=== PATIENT | female | born 1955 | race Caucasian/White ===

== ENCOUNTER → 2017-01-08 | Outpatient (CLI) | payer OTHER ==
[~2017-01-08] MED LIST: ASCO10003 PO; ASPEC81 PO; CALC600T9 PO; FAMO20TA11 PO; LISI-729 PO; LPT10 PO; METO25TA3 PO; MULTTAB58 PO
[2017-01-08 18:34] LABS: ALT/SGPT 38 U/L (12-78); AST/SGOT 22 U/L (15-37); BLOOD UREA NITROGEN 30 mg/dl (7-18); BUN/CREATININE RATIO 18.9 (10-20); CARBON DIOXIDE 21 mmol/L (21-32); CHLORIDE 112 mmol/L (98-107); CHOLESTEROL 135 mg/dl (0-200); GLUCOSE 79 mg/dl (70-99); MAGNESIUM 2.3 mg/dl (1.8-2.4); POTASSIUM 4.7 mmol/L (3.5-5.1); SODIUM 144 mmol/L (136-145); TRIGLYCERIDES 58 mg/dl (0-150); VERY LOW DENSITY LIPOPROT CALC 12 mg/dl
[2017-01-08 18:44] LABS: ALB/GLOB RATIO 1.2 (0.9-2); ALKALINE PHOSPHATASE 72 U/L (45-117); HDL CHOLESTEROL 69 mg/dl; LDL CHOLESTEROL CALCULATED 54 mg/dl
[2017-01-08 19:06] LABS: CALCIUM 9.5 mg/dl (8.5-10.1)
== END | disposition home or self-care (01) ==
LOC: C.LABPVFM 13:49
PROVIDERS: ATTEND Nurse Practitioner
DX: R25.2 Cramp and spasm (principal); E78.5 Hyperlipidemia, unspecified

== ENCOUNTER → 2017-01-15 | Outpatient (CLI) | payer OTHER ==
--- NOTE | 2017-01-15 11:21 | DIAGNOSTIC IMAGING REPORT ---
RENAL ULTRASOUND HISTORY: N28.9 Renal insufficiency, [id number] COMPARISON: None. FINDINGS: Right kidney: Maximum dimension 11.7 cm. No evidence for hydronephrosis. Normal corticomedullary differentiation and cortical thickness. Left kidney: Maximum dimension 10.5 cm. No evidence for hydronephrosis. Normal corticomedullary differentiation and cortical thickness. Bladder: No bladder wall thickening. The bilateral ureteral jets were identified. IMPRESSION: Normal renal ultrasound. Electronically signed by: Delroy Vale M.D. 01/15/2017 11:20 AM Dictated Date/Time: 01/15/2017 11:20 AM
== END | disposition home or self-care (01) ==
LOC: C.ULTR 10:25
PROVIDERS: ATTEND Nurse Practitioner
DX: N28.9 Disorder of kidney and ureter, unspecified (principal)

== ENCOUNTER → 2017-02-19 | Outpatient (CLI) | payer OTHER ==
--- NOTE | 2017-02-19 12:21 | DIAGNOSTIC IMAGING REPORT ---
LEFT FOOT MIN 3 VIEWS ROUTINE CLINICAL HISTORY: LEFT ANKLE PAIN, LEFT FOOT PAIN pain COMPARISON: None. DISCUSSION: Heel spur. Degenerative change of the tarsal metatarsal complex. No evidence for fracture or dislocation/subluxation. Mild degenerative change of the interphalangeal joints throughout. There is no evidence for soft tissue swelling. IMPRESSION: Moderate degenerative change. Heel spur. No acute bony abnormality. The above report was generated using voice recognition software. It may contain grammatical, syntax or spelling errors. Electronically signed by: Delroy Vale M.D. 02/19/2017 12:20 PM Dictated Date/Time: 02/19/2017 12:19 PM
== END | disposition home or self-care (01) ==
LOC: C.RADPV 12:06
PROVIDERS: ATTEND Neuromusculoskeletal Medicine & OMM
DX: M25.572 Pain in left ankle and joints of left foot (principal); M79.672 Pain in left foot; M77.32 Calcaneal spur, left foot

== ENCOUNTER → 2017-04-03 | Outpatient (CLI) | payer OTHER ==
[2017-04-03 17:56] LABS: URINE APPEARANCE CLOUDY (CLEAR); URINE BILIRUBIN NEG (NEG); URINE COLOR DK YELLOW; URINE EPITHELIAL CELL AUTO >30 /lpf (0-5); URINE NITRITE NEG (NEG); UROBILINOGEN NEG (NEG); ZZUR CULT IF INDIC CLEAN CATCH YES
[2017-04-03 18:00] LABS: BLOOD UREA NITROGEN 24 mg/dl (7-18); BUN/CREATININE RATIO 18.5 (10-20); CALCIUM 9.1 mg/dl (8.5-10.1); CARBON DIOXIDE 24 mmol/L (21-32); CHLORIDE 109 mmol/L (98-107); GLUCOSE 91 mg/dl (70-99); MAGNESIUM 1.9 mg/dl (1.8-2.4); POTASSIUM 4.2 mmol/L (3.5-5.1); SODIUM 140 mmol/L (136-145)
[2017-04-03 18:01] LABS: PHOSPHORUS 3.9 mg/dl (2.5-4.9)
[2017-04-03 18:06] LABS: MANUAL MICROSCOPIC REQUIRED? NO; REVIEW REQ? YES
== END | disposition home or self-care (01) ==
LOC: C.LABPVFM 14:01
PROVIDERS: ATTEND Internal Medicine Nephrology
DX: N28.9 Disorder of kidney and ureter, unspecified (principal)

== ENCOUNTER → 2017-07-08 | Outpatient (CLI) | payer OTHER | END | disposition home or self-care (01) | LOC: C.LABPVFM 14:44 | PROVIDERS: ATTEND Nurse Practitioner | DX: L65.9 Nonscarring hair loss, unspecified (principal); R00.0 Tachycardia, unspecified ==

== ENCOUNTER → 2017-09-11 | Outpatient (CLI) | payer OTHER ==
[2017-09-11 18:11] LABS: ALBUMIN 3.8 gm/dl (3.4-5.0); BLOOD UREA NITROGEN 25 mg/dl (7-18); CALCIUM 9.3 mg/dl (8.5-10.1); CARBON DIOXIDE 26 mmol/L (21-32); CREATININE 1.17 mg/dl (0.60-1.20); GLUCOSE 76 mg/dl (70-99); POTASSIUM 4.7 mmol/L (3.5-5.1); SODIUM 140 mmol/L (136-145)
== END ==
LOC: C.LABPVFM 14:40
PROVIDERS: ATTEND Internal Medicine Nephrology
DX: Z87.448 Personal history of other diseases of urinary system (principal)

== ENCOUNTER → 2018-03-04 | Outpatient (CLI) | payer OTHER ==
[~2018-03-04] MED LIST changes: -ASPEC81 PO; +ASPI-320 PO
--- NOTE | 2018-03-05 13:39 | MAMMOGRAPHY REPORT ---
BILATERAL DIGITAL SCREENING MAMMOGRAM TOMOSYNTHESIS WITH CAD: 03/04/2018 CLINICAL HISTORY: Routine screening. Patient has no complaints. TECHNIQUE: The study was acquired using full field digital technology and interpreted from soft copy. Breast tomosynthesis in addition to standard 2D mammography was performed. Current study was also ev aluated with a Computer Aided Detection (CAD) system. COMPARISON: Comparison is made to exams dated: 02/10/2016 mammogram and 07/01/2014 mammogram - [facility]. BREAST COMPOSITION: The tissue of both breasts is heterogeneously dense, which may obscure small mass es. FINDINGS: There are benign calcifications in both breasts. The parenchymal pattern is unchanged. No developin g mass, architectural distortion or cluster of suspicious microcalcifications is seen in either breas t. IMPRESSION: ACR BI-RADS CATEGORY 2: BENIGN There is no mammographic evidence of malignancy. A 1 year screening mammogram is recommended.( 019) The patient will receive written notification of the results. Some breast cancers are not detected with mammography. A negative mammographic report should not laurie y biopsy if a clinically suggestive mass is present. Bessy Do M.D. ay/:03/04/2018 17:39:57 Fence Installer: RT Veto(Jolene)(M), [facility] letter sent: Normal 1/2 BI-RADS Code: ACR BI-RADS Category 2: Benign
== END | disposition home or self-care (01) ==
LOC: C.MAMM 14:24
PROVIDERS: ATTEND Nurse Practitioner
DX: Z12.31 Encounter for screening mammogram for malignant neoplasm of breast (principal)

== ENCOUNTER 2019-06-09 10:28 | Inpatient (IN) ==
[2019-06-09] MEDS ORDERED: dilTIAZem HCl 5 MG/ML 5 ML VIAL IV STA (11:11)
[2019-06-09 11:15] LABS: Basophils # (auto) 0.03 K/uL (0-0.2); Basophils % (auto) 0.4 %; Eosinophils # (auto) 0.06 K/uL (0-0.5); Eosinophils % (auto) 0.8 %; Hematocrit (blood only) 37.4 % (37-47); Hemoglobin 12.1 g/dL (12.0-16.0); Immature Granulocytes # (auto) 0.01 K/uL (0.00-0.02); Immature Granulocytes % (auto) 0.1 %; Lymphocytes # (auto) 1.56 K/uL (1.2-3.4); Lymphocytes % (auto) 20.9 %; Mean Corpuscular Hemoglobin 29.7 pg (25-34); Mean Corpuscular Hgb Conc 32.4 g/dL (32-36); Mean Corpuscular Volume 91.7 fL (80-100); Mean Platelet Volume 10.4 fL (7.4-10.4); Monocytes # (auto) 0.47 K/uL (0.11-0.59); Monocytes % (auto) 6.3 %; Neutrophils # (auto) 5.35 K/uL (1.4-6.5); Neutrophils % (auto) 71.5 %; Platelet Count 220 K/uL (130-400); RDW Coefficient of Variation 15.5 % (11.5-14.5); RDW Standard Deviation 52.1 fL (36.4-46.3); Red Blood Count 4.08 M/uL (4.2-5.4); White Blood Count 7.48 K/uL (4.8-10.8)
--- NOTE | 2019-06-09 11:20 | XRay Report ---
XR chest 1V portable HISTORY: Atypical Chest Pain COMPARISON: Chest 12/15/2014. FINDINGS: The cardiac silhouette is mildly enlarged. This is progressed in the interval. Diffuse inte rstitial vascular thickening has also new from the prior study. This is consistent with mild intersti tial pulmonary edema. Small bilateral pleural effusions have also developed in the interval. Hazy celia earance of the right lung base. IMPRESSION: 1. Interval development of mild interstitial pulmonary edema and small bilateral pleural effusions. 2. Hazy appearance to the right lung base. This is nonspecific but could be due to atelectasis from t he pleural fusion or a developing pneumonia. Electronically signed by: Michael Rees M.D. 06/09/2019 11:19 AM
[2019-06-09 11:22] LABS: Alanine Aminotransferase 173 U/L (12-78); Albumin Level 3.5 gm/dl (3.4-5.0); Aspartate Aminotransferase 49 U/L (15-37); BUN Creatinine Ratio 23.1 (10-20); Blood Urea Nitrogen 30 mg/dl (7-18); Calcium 9.2 mg/dl (8.5-10.1); Carbon Dioxide 22 mmol/L (21-32); Chloride 109 mmol/L (98-107); Creatinine Clr Calc Pharmacy 62.2 ml/min; Est GFR (African American) 50.2; Est GFR (Non-African American) 43.3; Glucose 117 mg/dl (70-99); Lipase 121 U/L (73-393); Potassium 4.1 mmol/L (3.5-5.1); Sodium 140 mmol/L (136-145)
[2019-06-09 11:26] LABS: INR 1.2 (0.9-1.1); Partial Thromboplastin Ratio 0.9; Partial Thromboplastin Time 23.5 Seconds (21.0-31.0); Prothrombin Time 11.8 Seconds (9.0-12.0)
[2019-06-09 11:27] LABS: Alkaline Phosphatase 153 U/L (45-117); Bilirubin,Total 0.9 mg/dl (0.2-1); Globulin 3.5 gm/dl (2.5-4.0); Troponin I < 0.015 ng/ml (0-0.045)
[2019-06-09] MEDS: dilTIAZem HCl 125 MG in DEXTROSE 5% 100 ML IV SCH ×3 (11:47→23:26)
--- NOTE | 2019-06-09 11:50 | Emergency Department Note ---
General (ED) Blank Date of Service June 09, 2019 ED Visit Note I attest that I saw and examined this patient, participating in their care under the direction of Dr. Daniel. Please see his note for clinical assessment and course. Resident Activity Tracking Resident Involvement: Resident Care Provided Care Provided: Adult ED
[2019-06-09 11:51] LABS: Appearance Urine Cloudy (Clear); Bacteria Urine Automated Negative (Negative); Bilirubin Urine Negative (Negative); Blood Urine Negative (Negative); Color Urine Dark Yellow; Epithelial Cell Urine Auto >30 /lpf (0-5); Glucose Urine UA Negative (Negative); Ketones Urine Trace (Negative); Leukocyte Esterase Urine Negative (Negative); Nitrite Urine Negative (Negative); Protein Urine 2+ (Negative); RBC Urine Automated 0-4 /hpf (0-4); Specific Gravity Urine 1.032 (1.000-1.030); Urobilinogen Urine Negative (Negative)
--- NOTE | 2019-06-09 13:43 | Emergency Department Note ---
Entered by Susan Navarro acting as a scribe for Coleman Daniel DO History of Present Illness General Chief complaint: Edema To Extremity Time Seen by Provider: 06/09/19 11:02 Source: patient History of Present Illness Provider complaint: shortness of breath Onset (ago): week(s) 1 Location: chest Pain Consistency: + intermittent Maximum Pain Intensity: 2 Relieved By: + rest Exacerbated By: + movement Associated symptoms: + other (lower extermity swelling ) The patient is a 64 y/o female who presents to the emergency department for evaluation of intermittent shortness of breath worse with excretion that began 1 week ago The patient states that she has had one week of lower extremity swelling with associated shortness of breath. 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 The patient states she went to her PCP this morning and was referred to the ED for a-fib with RVR. The patient denies any other symptoms. Home Medications Home Medications Medication Instructions Recorded Confirmed Type acetaminophen 500 mg tablet 500 mg PO .COMPLEX tab 02/12/19 06/09/19 History ascorbic acid (vitamin C) 1,000 mg 1 gm PO DAILY tab 02/12/19 06/09/19 History tablet atorvastatin 20 mg tablet 20 mg PO QPM tab 02/12/19 06/09/19 History cholecalciferol (vitamin D3) 25 1,000 units PO DAILY 02/12/19 06/09/19 History mcg (1,000 unit) tablet famotidine 20 mg tablet 20 mg PO DAILY #90 tab 02/12/19 06/09/19 History metoprolol succinate 25 mg 25 mg PO DAILY #90 tab 02/23/19 06/09/19 Rx tablet,extended release 24 hr omeprazole 20 mg capsule,delayed 20 mg PO DAILY #90 cap 03/23/19 06/09/19 Rx release amoxicillin 875 mg-potassium 1 tab PO BID #20 tab 06/03/19 06/09/19 Rx clavulanate 125 mg tablet promethazine 6.25 mg-codeine 10 5 ml PO Q6H PRN #118 ml 06/03/19 06/09/19 Rx mg/5 mL syrup multivitamin 1 tab PO DAILY 06/09/19 06/09/19 History oxycodone 5 mg PO UD PRN 06/09/19 06/09/19 History Allergies Allergy/AdvReac Type Severity Reaction Status Date / Time meloxicam Allergy Intermediate RASH Verified 06/09/19 11:29 Past Med/Surg History Medical History Atherosclerotic heart disease of [place] coronary artery without angina pectoris (Acute) Chest pain (Acute) Chronic venous insufficiency (Acute) Crystalluria (Acute) Diverticulitis (Acute) Diverticulosis of colon (Acute) Dyslipidemia (Chronic) Elevated blood sugar level (Resolved) GERD without esophagitis (Chronic) High risk medication use (Acute) History of acute renal failure (Resolved) Orthostatic hypotension (Acute) PSVT (paroxysmal supraventricular tachycardia) (Acute) Vaginal prolapse (Acute) Surgical History S/P total knee arthroplasty (Resolved) Social History Preferred Language: Zambian Communication Ability: Effective Grades 1 Thru 6 Visiting Teacher Required: No Beliefs That Will Affect Care: None marital status: Current Living Situation: Spouse current occupational status: employed Other Information That Helps Us Care for You: No Feels Safe at Home: Yes Safety Concerns: Feels Safe At This Time Smoking Status: Never smoker Hx Alcohol Use: No Hx Substance Use: No caffeine: Yes Dental Care, Regularly: No Physical Activity Frequency: Does not Exercise Seatbelt Use: always Sunscreen Use: Yes Review of Systems See HPI for pertinent positives & negatives. and A total of 10 systems reviewed and were otherwise negative Physical Exam Vital Signs Vital Signs - 24 hr 06/09/19 10:35 06/09/19 10:58 06/09/19 11:00 Temperature 36.5 C Temperature Source Oral Pulse Rate 156 H 150 H 138 H Pulse Rate [Left] 152 H Pulse Rate from SpO2 Sensor 98 H 129 H Respiratory Rate 24 28 H 24 Respiratory Effort / Characteristics Spontaneous Non-Labored Respiratory Depth Normal Respiratory Pattern Regular Blood Pressure 143/94 H 154/75 H 136/114 H Blood Pressure [Left Arm] 154/75 H Blood Pressure Mean 110 92 118 Blood Pressure Mean [Left Arm] 101 Pulse Oximetry 95 94 Oxygen Delivery Method Room Air Room Air Sepsis Recent Fever Within 48 Hours No Sepsis New/Unexplained Change in Mental Status No Sepsis Action Taken by Nursing No Action Required 06/09/19 11:01 06/09/19 11:11 06/09/19 11:15 Temperature Temperature Source Pulse Rate 142 H 145 H Pulse Rate [Left] Pulse Rate from SpO2 Sensor 102 H 113 H Respiratory Rate 23 23 Respiratory Effort / Characteristics Respiratory Depth Respiratory Pattern Blood Pressure Blood Pressure [Left Arm] Blood Pressure Mean Blood Pressure Mean [Left Arm] Pulse Oximetry 96 96 94 Oxygen Delivery Method Room Air Sepsis Recent Fever Within 48 Hours Sepsis New/Unexplained Change in Mental Status Sepsis Action Taken by Nursing 06/09/19 11:37 06/09/19 11:39 06/09/19 11:40 Temperature Temperature Source Pulse Rate 163 H 150 H 147 H Pulse Rate [Left] Pulse Rate from SpO2 Sensor 126 H 122 H Respiratory Rate 26 H 23 26 H Respiratory Effort / Characteristics Respiratory Depth Respiratory Pattern Blood Pressure 118/88 Blood Pressure [Left Arm] Blood Pressure Mean 92 Blood Pressure Mean [Left Arm] Pulse Oximetry 94 94 Oxygen Delivery Method Sepsis Recent Fever Within 48 Hours Sepsis New/Unexplained Change in Mental Status Sepsis Action Taken by Nursing 06/09/19 11:45 06/09/19 11:46 06/09/19 11:49 Temperature Temperature Source Pulse Rate 143 H 143 H 123 H Pulse Rate [Left] Pulse Rate from SpO2 Sensor 110 H 98 H 100 H Respiratory Rate 23 18 25 H Respiratory Effort / Characteristics Respiratory Depth Respiratory Pattern Blood Pressure 137/101 H 127/98 Blood Pressure [Left Arm] Blood Pressure Mean 107 110 Blood Pressure Mean [Left Arm] Pulse Oximetry 93 94 92 Oxygen Delivery Method Sepsis Recent Fever Within 48 Hours Sepsis New/Unexplained Change in Mental Status Sepsis Action Taken by Nursing 06/09/19 12:00 06/09/19 12:01 06/09/19 12:15 Temperature Temperature Source Pulse Rate 111 H 111 H 114 H Pulse Rate [Left] Pulse Rate from SpO2 Sensor 113 H 98 H 96 H Respiratory Rate 25 H 21 18 Respiratory Effort / Characteristics Respiratory Depth Respiratory Pattern Blood Pressure 123/80 125/85 Blood Pressure [Left Arm] Blood Pressure Mean 100 98 Blood Pressure Mean [Left Arm] Pulse Oximetry 91 92 Oxygen Delivery Method Sepsis Recent Fever Within 48 Hours Sepsis New/Unexplained Change in Mental Status Sepsis Action Taken by Nursing 06/09/19 12:16 06/09/19 12:30 06/09/19 12:31 Temperature Temperature Source Pulse Rate 115 H 123 H 112 H Pulse Rate [Left] Pulse Rate from SpO2 Sensor 89 105 H 99 H Respiratory Rate 22 24 24 Respiratory Effort / Characteristics Respiratory Depth Respiratory Pattern Blood Pressure 125/87 Blood Pressure [Left Arm] Blood Pressure Mean 92 Blood Pressure Mean [Left Arm] Pulse Oximetry 95 94 95 Oxygen Delivery Method Sepsis Recent Fever Within 48 Hours Sepsis New/Unexplained Change in Mental Status Sepsis Action Taken by Nursing 06/09/19 12:45 06/09/19 12:46 06/09/19 13:00 Temperature Temperature Source Pulse Rate 118 H 104 H 127 H Pulse Rate [Left] Pulse Rate from SpO2 Sensor 98 H 97 H 101 H Respiratory Rate 21 23 22 Respiratory Effort / Characteristics Respiratory Depth Respiratory Pattern Blood Pressure 128/81 122/90 Blood Pressure [Left Arm] Blood Pressure Mean 100 104 Blood Pressure Mean [Left Arm] Pulse Oximetry 94 94 91 Oxygen Delivery Method Sepsis Recent Fever Within 48 Hours Sepsis New/Unexplained Change in Mental Status Sepsis Action Taken by Nursing 06/09/19 13:01 06/09/19 13:15 06/09/19 13:16 Temperature Temperature Source Pulse Rate 114 H 107 H 113 H Pulse Rate [Left] Pulse Rate from SpO2 Sensor 94 H 94 H 98 H Respiratory Rate 22 19 23 Respiratory Effort / Characteristics Respiratory Depth Respiratory Pattern Blood Pressure 120/92 Blood Pressure [Left Arm] Blood Pressure Mean 98 Blood Pressure Mean [Left Arm] Pulse Oximetry 94 95 89 L Oxygen Delivery Method Sepsis Recent Fever Within 48 Hours Sepsis New/Unexplained Change in Mental Status Sepsis Action Taken by Nursing 06/09/19 13:30 06/09/19 13:31 Temperature Temperature Source Pulse Rate 112 H 112 H Pulse Rate [Left] Pulse Rate from SpO2 Sensor 100 H 92 H Respiratory Rate 16 20 Respiratory Effort / Characteristics Respiratory Depth Respiratory Pattern Blood Pressure 104/74 Blood Pressure [Left Arm] Blood Pressure Mean 78 Blood Pressure Mean [Left Arm] Pulse Oximetry 95 95 Oxygen Delivery Method Sepsis Recent Fever Within 48 Hours Sepsis New/Unexplained Change in Mental Status Sepsis Action Taken by Nursing CONSTITUTIONAL/VITAL SIGNS: Reviewed / noted above. GENERAL: Non-toxic in appearance. INTEGUMENTARY: Warm, dry, and Schaller. HEAD: Normocephalic. EYES: without scleral icterus or trauma. ENT/OROPHARYNX: clear and moist. LYMPHADENOPATHY/NECK: Is supple without lymphadenopathy or meningismus. RESPIRATORY: Lungs clear and equal. CARDIOVASCULAR: Irregular rate and rapid rhythm. GI/ABDOMEN: Soft and nontender. No organomegaly or pulsatile mass. No rebound or guarding. Normal bowel sounds. EXTREMITIES: Warm and well perfused. Positive bilateral pedal edema BACK: No CVA tenderness. NEUROLOGICAL: Intact without focal deficits. PSYCHIATRIC: normal affect. MUSCULOSKELETAL: Normally developed with good muscle tone. Course Course 1103: Past medical records reviewed. The patient was evaluated in room C03. A complete history and physical exam was performed. 1348: I spoke with Dr. Singh [facility] hospitalist. He will evaluate for further management. 1355: I updated the patient on the treatment plan. Administered Medications Diltiazem HCl 125 mg/ Dextrose 125 mls @ 0 mls/hr IV .Q0M DIONICIO; Protocol Stop: 07/09/19 11:14 Last Titration: 06/09/19 13:43 Dose: 10 mg/hr, 10 mls/hr Documented by: [id number] Cosigned by: [id number] Admin: 06/09/19 11:47 Dose: 5 mg/hr, 5 mls/hr Documented by: [id number] Cosigned by: [id number] Discontinued Medications Diltiazem HCl (Cardizem) 20 mg IV NOW STA Stop: 06/09/19 11:12 Last Admin: 06/09/19 11:46 Dose: 20 mg Documented by: [id number] Cosigned by: [id number] Impression & Plan Atrial fibrillation with RVR Medical Decision Making Differential Diagnosis The differential that was considered includes acute myocardial infarction, acute coronary syndrome, myocarditis, pericarditis, pericardial effusions /tamponade, esophageal perforation, thoracic aortic dissection, pulmonary embolism, p neumonia, pneumothorax, pancreatitis, shingles, acute cholecystitis, perforated abdominal viscus. Medical Records Attestation: I reviewed the patient's medical records. Home Medications Current Medication List: was personally reviewed by me Laboratory Data Attestation: I reviewed the patient's lab results. Result diagrams: 06/09/19 10:45 06/09/19 10:45 Lab Results 06/09/19 06/09/19 06/09/19 Range/Units 10:45 10:45 10:45 WBC 7.48 (4.8-10.8) K/uL RBC 4.08 L (4.2-5.4) M/uL Hgb 12.1 (12.0-16.0) g/dL Hct 37.4 (37-47) % MCV 91.7 (80-100) fL MCH 29.7 (25-34) pg MCHC 32.4 (32-36) g/dL RDW Std Deviation 52.1 H (36.4-46.3) fL RDW Coeff of Winsome 15.5 H (11.5-14.5) % Plt Count 220 (130-400) K/uL MPV 10.4 (7.4-10.4) fL Immature Gran % (Auto) 0.1 % Neut % (Auto) 71.5 % Lymph % (Auto) 20.9 % Tift % (Auto) 6.3 % Eos % (Auto) 0.8 % Baso % (Auto) 0.4 % Immature Gran # (Auto) 0.01 (0.00-0.02) K/uL Neut # (Auto) 5.35 (1.4-6.5) K/uL Lymph # (Auto) 1.56 (1.2-3.4) K/uL Tift # (Auto) 0.47 (0.11-0.59) K/uL Eos # (Auto) 0.06 (0-0.5) K/uL Baso # (Auto) 0.03 (0-0.2) K/uL PT 11.8 (9.0-12.0) Seconds INR 1.2 H (0.9-1.1) APTT 23.5 (21.0-31.0) Seconds PTT Ratio 0.9 Sodium 140 (136-145) mmol/L Potassium 4.1 (3.5-5.1) mmol/L Chloride 109 H (98-107) mmol/L Carbon Dioxide 22 (21-32) mmol/L Anion Gap 9.0 (3-11) BUN 30 H (7-18) mg/dl Creatinine 1.30 H (0.6-1.2) mg/dl Est Cr Clr Drug Dosing 62.2 ml/min Est GFR ( Amer) 50.2 Est GFR (Non-Af Amer) 43.3 BUN/Creatinine Ratio 23.1 H (10-20) Glucose 117 H (70-99) mg/dl Calcium 9.2 (8.5-10.1) mg/dl Total Bilirubin 0.9 (0.2-1) mg/dl AST 49 H (15-37) U/L ALT 173 H (12-78) U/L Alkaline Phosphatase 153 H (45-117) U/L Troponin I < 0.015 (0-0.045) ng/ml Total Protein 7.0 (6.4-8.2) gm/dl Albumin 3.5 (3.4-5.0) gm/dl Globulin 3.5 (2.5-4.0) gm/dl Albumin/Globulin Ratio 1.0 (0.9-2) Lipase 121 (73-393) U/L TSH (0.300-4.500) uIu/ml Urine Color Urine Appearance (Clear) Urine pH (4.5-7.5) Ur Specific [place] (1.000-1.030) Urine Protein (Negative) Urine Glucose (UA) (Negative) Urine Ketones (Negative) Urine Blood (Negative) Urine Nitrite (Negative) Urine Bilirubin (Negative) Urine Urobilinogen (Negative) Ur Leukocyte Esterase (Negative) Urine WBC (Auto) (0-5) /hpf Urine RBC (Auto) (0-4) /hpf U Hyaline Cast (Auto) (0-5) /lpf U Epithel Cells (Auto) (0-5) /lpf Urine Bacteria (Auto) (Negative) 06/09/19 06/09/19 Range/Units 10:45 11:35 WBC (4.8-10.8) K/uL RBC (4.2-5.4) M/uL Hgb (12.0-16.0) g/dL Hct (37-47) % MCV (80-100) fL MCH (25-34) pg MCHC (32-36) g/dL RDW Std Deviation (36.4-46.3) fL RDW Coeff of Winsome (11.5-14.5) % Plt Count (130-400) K/uL MPV (7.4-10.4) fL Immature Gran % (Auto) % Neut % (Auto) % Lymph % (Auto) % Tift % (Auto) % Eos % (Auto) % Baso % (Auto) % Immature Gran # (Auto) (0.00-0.02) K/uL Neut # (Auto) (1.4-6.5) K/uL Lymph # (Auto) (1.2-3.4) K/uL Tift # (Auto) (0.11-0.59) K/uL Eos # (Auto) (0-0.5) K/uL Baso # (Auto) (0-0.2) K/uL PT (9.0-12.0) Seconds INR (0.9-1.1) APTT (21.0-31.0) Seconds PTT Ratio Sodium (136-145) mmol/L Potassium (3.5-5.1) mmol/L Chloride (98-107) mmol/L Carbon Dioxide (21-32) mmol/L Anion Gap (3-11) BUN (7-18) mg/dl Creatinine (0.6-1.2) mg/dl Est Cr Clr Drug Dosing ml/min Est GFR ( Amer) Est GFR (Non-Af Amer) BUN/Creatinine Ratio (10-20) Glucose (70-99) mg/dl Calcium (8.5-10.1) mg/dl Total Bilirubin (0.2-1) mg/dl AST (15-37) U/L ALT (12-78) U/L Alkaline Phosphatase (45-117) U/L Troponin I (0-0.045) ng/ml Total Protein (6.4-8.2) gm/dl Albumin (3.4-5.0) gm/dl Globulin (2.5-4.0) gm/dl Albumin/Globulin Ratio (0.9-2) Lipase (73-393) U/L TSH 0.836 (0.300-4.500) uIu/ml Urine Color Dark Yellow Urine Appearance Cloudy A (Clear) Urine pH 5.0 (4.5-7.5) Ur Specific [place] 1.032 H (1.000-1.030) Urine Protein 2+ H (Negative) Urine Glucose (UA) Negative (Negative) Urine Ketones Trace H (Negative) Urine Blood Negative (Negative) Urine Nitrite Negative (Negative) Urine Bilirubin Negative (Negative) Urine Urobilinogen Negative (Negative) Ur Leukocyte Esterase Negative (Negative) Urine WBC (Auto) 5-10 H (0-5) /hpf Urine RBC (Auto) 0-4 (0-4) /hpf U Hyaline Cast (Auto) 1-5 (0-5) /lpf U Epithel Cells (Auto) >30 H (0-5) /lpf Urine Bacteria (Auto) Negative (Negative) Imaging Data Radiologist's Impression: Radiology results as stated below per my review and the radiologist's interpretation: XR chest 1V portable HISTORY: Atypical Chest Pain COMPARISON: Chest 12/15/2014. FINDINGS: The cardiac silhouette is mildly enlarged. This is progressed in the interval. Diffuse interstitial vascular thickening has also new from the prior study. This is consistent with mild interstitial pulmonary edema. Small bilateral pleural effusions have also developed in the interval. Hazy appearance of the right lung base. IMPRESSION: 1. Interval development of mild interstitial pulmonary edema and small bilateral pleural effusions. 2. Hazy appearance to the right lung base. This is nonspecific but could be due to atelectasis from the pleural fusion or a developing pneumonia. Electronically signed by: Michael Rees M.D. 06/09/2019 11:19 AM Blood Pressure Blood Pressure Findings: Normal blood pressure MDM Narrative This is a 64-year-old female who presents to the ED with a chief complaint of lo wer extremity edema. She saw her PCP today for this and was found to be in rapid A. fib. The patient denies any chest pains or palpitations. She does have some mild shortness of breath with exertion. Her symptoms are mild to moderate. Her exam reveals rapid A. fib with an irregular heart rate and rapid pulse. Her legs reveal peripheral edema. The rest of her exam was relatively unremarkable. A chest x-ray reveals some mild pulmonary edema. EKG showed A. fib with a heart rate of 142 with occasional PVCs. Chest x-ray did not show an acute process.. CBC and chemistry panel was unremarkable and a troponin was negative. The patient was told the results of the test. She will be seen for further evaluation and care by the hospitalist. She was treated with IV Cardizem bolus and Cardizem drip. This slowed her heart rate down. She was given aspirin by EMS. Discharge Plan Visit Data Chief Complaint: Edema To Extremity ED Provider: Coleman Daniel ED Midlevel Provider: Joyce Babcock Discharge Problem: Atrial fibrillation with RVR Patient Disposition: Being Evaluated by Hospitalist Condition: Good Forms Stand Alone Forms: My [facility], Important Visit Information Prescriptions Prescriptions: No Action metoprolol succinate 25 mg tablet extended release 24 hr 25 mg PO DAILY Qty: 90 RF: 1 omeprazole 20 mg capsule,delayed release(DR/EC) 20 mg PO DAILY Qty: 90 RF: 3 amoxicillin-pot clavulanate [Augmentin] 875-125 mg tablet 1 tab PO BID Qty: 20 RF: 0 promethazine-codeine 6.25-10 mg/5 mL syrup 5 ml PO Q6H PRN (Reason: cough) Qty: 118 RF: 0 acetaminophen 500 mg tablet 500 mg PO .COMPLEX RF: 0 atorvastatin 20 mg tablet 20 mg PO QPM RF: 0 famotidine 20 mg tablet 20 mg PO DAILY Qty: 90 RF: 0 ascorbic acid (vitamin C) 1,000 mg tablet 1 gm PO DAILY RF: 0 cholecalciferol (vitamin D3) [Vitamin D3] 1,000 unit tablet 1,000 units PO DAILY RF: 0 multivitamin Tablet 1 tab PO DAILY RF: 0 oxycodone 5 mg tablet 5 mg PO UD PRN (Reason: Pain) RF: 0 Referrals Referrals: Alina Luna CRNP [Primary Care Provider] - The scribe's documentation has been prepared under my direction and personally reviewed by me in its entirety. I confirm that the note above accurately reflects all work, treatment, procedures, and medical decision making performed by me.
[2019-06-09] MEDS ORDERED: OXYCODONE IR HOME PACK PO PRN (16:49)
[2019-06-09] MEDS ORDERED: ZOLPIDEM TARTRATE 5 MG TAB PO PRN (16:50)
[2019-06-09] MEDS ORDERED: POLYETHYLENE (MIRALAX) 17 GM PACK PO PRN (16:50)
[2019-06-09] MEDS ORDERED: MAGNESIUM HYDROXIDE SUSP 30 ML UDC PO PRN (16:50)
[2019-06-09] MEDS ORDERED: ONDANSETRON INJ 2 MG/ML 2 ML VIAL IV PRN (16:50)
[2019-06-09] MEDS ORDERED: NITROGLYCERIN SL 0.4 MG/TAB TAB SL PRN (16:50)
[2019-06-09] MEDS ORDERED: Heparin IV Standard *NO* Bolus STA (16:50)
[2019-06-09] MEDS ORDERED: ALUMINUM/MAGNESIUM SUSP 30 ML UDC PO PRN (16:50)
[2019-06-09] MEDS ORDERED: ACETAMINOPHEN 325 MG TAB PO PRN (16:50)
[2019-06-09] MEDS ORDERED: cefTRIAXone SODIUM 1,000 MG in DEXTROSE 5% 50 ML IV SCH (17:00)
--- NOTE | 2019-06-09 17:32 | XRay Report ---
XR foot LT min 3V routine CLINICAL HISTORY: 64 years-old Female presenting with trauma. TECHNIQUE: Frontal, oblique, and lateral views of the left foot were obtained. COMPARISON: 02/19/2017. FINDINGS: Moderate to severe osteopenia. Diffuse soft tissue swelling with subcutaneous edema and skin thickeni ng. This is pronounced over the dorsum of the foot. Degenerative changes at the tarsometatarsal artic ulations. Enthesophytes at the insertion of the Achilles tendon and origin of the plantar fascia. Mil d degenerative changes at the ankle mortise. Allowing for osteopenia, no acute fracture. No acute-celia earing malalignment. No osseous erosion or periosteal reaction. No soft tissue wound. IMPRESSION: 1. Allowing for osteopenia, no evidence of acute osseous injury. 2. Diffuse soft tissue swelling. This is nonspecific. 3. Degenerative changes as above. Electronically signed by: Michoacano Becerril M.D. 06/09/2019 5:31 PM
[2019-06-09] MEDS: HEPARIN SODIUM/DEXTROSE 25,000 UNITS/500 ML BAG IV SCH (17:46)
--- NOTE | 2019-06-09 18:15 | History & Physical Report ---
Date of Service June 09, 2019 Assessment & Plan (1) Atrial fibrillation with RVR: New onset, started on Cardizem drip currently rate controlled Discussed anticoagulation risks and benefits with patient and family giving her elevated chads score, started her on heparin drip for now, can be discharged on Eliquis Continue metoprolol XL Ordered 2D echo Ordered garment examiner consult (2) Acute on chronic diastolic CHF (congestive heart failure): Likely rate induced, We will give only 1 dose of Lasix 20 mg IV, hold on any extra diuresis and focus on rate control Ordered 2D echo Continue beta-enrike Ordered lipids panel and hemoglobin A1c to stratify her risk factors 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 Either way ordered a urine culture Also ordered ceftriaxone for her pneumonia that we will treat her UTI unless urine cultures show something different (5) GERD without esophagitis: Continue PPI (6) Dyslipidemia: Ordered lipids panel and continued statin (7) Obesity: Clinically suspected obstructive sleep apnea, patient was instructed to do sleep study as an outpatient History of Present Illness 64-year-old female with past medical history of dyslipidemia, essential hypertension, chronic venous insufficiency and bilateral lower extremity lymphedema, diverticulosis, GERD and chronic kidney disease stage II-III, presented to the ED today with left knee pain. Patient had increased swelling and pain in her left knee for the past few days, also complained of shortness of breath and lung congestion. She has been coughing for about a week with yellowish sputum production. She went to her primary care physician and she was giving guaifenesin. Today her shortness of breath got slightly worse and her left knee pain became much more than the usual pain she has for her arthritis. Her left knee pain shoots down her left calf muscle. She denies any chest pain or palpitation. She was found to have a heart rate of 140 A. fib RVR new onset. Chest x-ray showed pulmonary congestion with right lower lobe density. Patient will be admitted for further evaluation and management Primary Care Provider: DEEP Downey Allergies Allergy/AdvReac Type Severity Reaction Status Date / Time meloxicam Allergy Intermediate RASH Verified 06/09/19 11:29 Home Medications Home Medications Medication Instructions Recorded Confirmed Type acetaminophen 500 mg tablet 500 mg PO .COMPLEX tab 02/12/19 06/09/19 History ascorbic acid (vitamin C) 1,000 mg 1 gm PO DAILY tab 02/12/19 06/09/19 History tablet atorvastatin 20 mg tablet 20 mg PO QPM tab 02/12/19 06/09/19 History cholecalciferol (vitamin D3) 25 1,000 units PO DAILY 02/12/19 06/09/19 History mcg (1,000 unit) tablet famotidine 20 mg tablet 20 mg PO DAILY #90 tab 02/12/19 06/09/19 History metoprolol succinate 25 mg 25 mg PO DAILY #90 tab 02/23/19 06/09/19 Rx tablet,extended release 24 hr omeprazole 20 mg capsule,delayed 20 mg PO DAILY #90 cap 03/23/19 06/09/19 Rx release amoxicillin 875 mg-potassium 1 tab PO BID #20 tab 06/03/19 06/09/19 Rx clavulanate 125 mg tablet promethazine 6.25 mg-codeine 10 5 ml PO Q6H PRN #118 ml 06/03/19 06/09/19 Rx mg/5 mL syrup multivitamin 1 tab PO DAILY 06/09/19 06/09/19 History oxycodone 5 mg PO UD PRN 06/09/19 06/09/19 History Past Med/Surg History Medical History Atherosclerotic heart disease of [place] coronary artery without angina pectoris (Acute) Chest pain (Acute) Chronic venous insufficiency (Acute) Crystalluria (Acute) Diverticulitis (Acute) Diverticulosis of colon (Acute) Dyslipidemia (Chronic) Elevated blood sugar level (Resolved) GERD without esophagitis (Chronic) High risk medication use (Acute) History of acute renal failure (Resolved) Orthostatic hypotension (Acute) PSVT (paroxysmal supraventricular tachycardia) (Acute) Vaginal prolapse (Acute) Surgical History S/P total knee arthroplasty (Resolved) Social History Preferred Language: Turkish Communication Ability: Effective Hog Buyer Required: No Beliefs That Will Affect Care: None marital status: Current Living Situation: Spouse current occupational status: employed Other Information That Helps Us Care for You: No Feels Safe at Home: Yes Safety Concerns: Feels Safe At This Time Smoking Status: Never smoker Hx Alcohol Use: No Hx Substance Use: No caffeine: Yes Dental Care, Regularly: No Physical Activity Frequency: Does not Exercise Seatbelt Use: always Sunscreen Use: Yes Review of Systems Review of Systems: Review of system Constitutional: No fever / no chills / no sweats /positive for generalized weakness and fatigue Eyes: no blurring of vision / no eye pain / no discharge / no redness ENT: no hearing loss / no epistaxis /no swallowing problems Respiratory: / no wheezing /positive for productive cough and shortness of breath/ no hemoptysis Cardiovascular: no Chest pain / no lower extremity edema / no palpitation Abdomen: no pain / no nausea / no vomiting / no constipation Musculoskeletal: Positive for left knee pain and swelling Genitourinary: no dysuria / no incontinence / no urinary retention Neurologic: no focal weakness / no numbness/tingling / no ataxia Psychiatric: no depression symptoms / no anxiety / no insomnia Endocrine: no excessive thirst / no excessive urination Hematologic: no abnormal bleeding / no bruising / no LN swelling Skin: No rash / no pallor Physical Exam Physical Exam: Physical examination General obese appears to be in moderate distress HEENT: Atraumatic , normocephalic /no jaundice /no pallor /anicteric /no dry mucous membrane /normal external ear inspection Neck: Supple /no swelling /central trach Heart: S1/S2 irregular irregularity, controlled rhythm/no gallop /no rub /no murmur Lungs: Decreased air entry bilaterally, scattered rhonchi, bilateral basal Rales. Abdomen: Soft/nontender/no guarding/no rebound/no organomegaly/no pulsatile mass Musculoskeletal: Left knee has slight tenderness, range of motion is adequate, slight tenderness in left calf muscle Neuro exam: Awake alert oriented 3/cranial nerves II through XII appear to be intact/sensation intact/moves all extremities/no abnormal movements Psychiatric evaluation: No depressed mood/normal affect Skin: No rash on exposed skin area/no erythema Extremity: Bilateral lower extremity lymphedema left more than right Endocrine/lymphatic: No obvious lymphadenopathy /no lymphedema Results & Data Vital Signs (Past 12 Hours) Vital Signs Temp Pulse Pulse Resp BP BP Pulse Ox 06/09/19 17:46 108 H 19 93 06/09/19 17:31 113 H 25 H 137/85 93 06/09/19 17:15 112 H 21 142/99 H 92 06/09/19 17:01 121 H 24 92 06/09/19 17:00 120 H 21 122/90 91 06/09/19 16:46 118 H 17 91 06/09/19 16:45 109 H 19 129/106 H 94 06/09/19 16:31 128 H 28 H 94 06/09/19 16:30 120 H 19 124/99 93 06/09/19 16:16 116 H 26 H 92 06/09/19 16:15 105 H 21 138/98 95 06/09/19 16:01 108 H 32 H 92 06/09/19 16:00 122 H 22 128/93 92 06/09/19 15:46 95 H 18 95 06/09/19 15:45 111 H 17 120/93 93 06/09/19 15:31 114 H 14 95 06/09/19 15:30 105 H 13 138/80 95 06/09/19 15:16 105 H 19 96 06/09/19 15:15 113 H 13 132/90 94 06/09/19 15:01 97 H 15 94 06/09/19 15:00 116 H 16 122/95 95 06/09/19 14:46 105 H 21 93 06/09/19 14:45 96 H 19 130/98 96 06/09/19 14:31 112 H 16 94 06/09/19 14:30 121 H 16 127/98 93 06/09/19 14:16 115 H 18 95 06/09/19 14:15 112 H 15 134/112 H 96 06/09/19 14:01 109 H 21 92 06/09/19 14:00 113 H 20 118/92 93 06/09/19 13:46 119 H 21 115/88 94 06/09/19 13:45 114 H 26 H 92 06/09/19 13:44 116 H 20 128/103 H 96 06/09/19 13:31 112 H 20 95 11/12/19 13:30 112 H 16 104/74 95 06/09/19 13:16 113 H 23 89 L 06/09/19 13:15 107 H 19 120/92 95 06/09/19 13:01 114 H 22 94 06/09/19 13:00 127 H 22 122/90 91 06/09/19 12:46 104 H 23 94 06/09/19 12:45 118 H 21 128/81 94 06/09/19 12:31 112 H 24 95 06/09/19 12:30 123 H 24 125/87 94 06/09/19 12:16 115 H 22 95 06/09/19 12:15 114 H 18 125/85 92 06/09/19 12:01 111 H 21 91 06/09/19 12:00 111 H 25 H 123/80 06/09/19 11:49 123 H 25 H 127/98 92 06/09/19 11:46 143 H 18 94 06/09/19 11:45 143 H 23 137/101 H 93 06/09/19 11:40 147 H 26 H 94 06/09/19 11:39 150 H 23 118/88 94 06/09/19 11:37 163 H 26 H 06/09/19 11:15 145 H 23 94 06/09/19 11:11 96 06/09/19 11:01 142 H 23 96 06/09/19 11:00 138 H 24 136/114 H 06/09/19 10:58 150 H 152 H 28 H 154/75 H 154/75 H 94 06/09/19 10:35 36.5 C 156 H 24 143/94 H 95 Code Status & VTE Plan Code Status Based on discussion with patient and family patient was made full code PG Care Time/CCT Total # of Minutes Spent Total Time Spent with Patient: 35 minutes total time spent is greater than 50% in coordination of care (as documented) at patient's floor/unit and/or counseling patient/family discussion of care with nursing staff
[2019-06-09] MEDS ORDERED: guaiFENesin SUGAR FREE 200 MG/10 ML UDC PO PRN (19:13)
[2019-06-09] MEDS ORDERED: FUROSEMIDE 20 MG in SYRINGE 0 ML IV ONE (20:00)
[2019-06-09] MEDS: METOPROLOL SUCC 25MG EXT REL TAB PO SCH (20:29)
[2019-06-09] MEDS: LACTOBACILLUS ACIDOPHILUS 1 GM PACK PO SCH (20:29)
[2019-06-09] MEDS: cefTRIAXone SODIUM 2,000 MG in DEXTROSE 5% 50 ML IV SCH (20:30)
[2019-06-09] MEDS: ATORVASTATIN 20 MG TAB PO SCH (20:30)
[2019-06-09] MEDS: AZITHROMYCIN 250 MG TAB PO SCH (22:14)
[2019-06-10 00:31] LABS: Partial Thromboplastin Ratio 1.8
[2019-06-10 00:38] LABS: Partial Thromboplastin Time 49.4 Seconds (21.0-31.0)
[2019-06-10 06:17] LABS: Estimated Average Glucose 134 mg/dl; Hemoglobin A1C 6.3 % (4.5-5.6)
[2019-06-10 07:00] LABS: Partial Thromboplastin Ratio 2.4
--- NOTE | 2019-06-10 07:03 | Ultrasound Report ---
BILATERAL LOWER EXTREMITY VENOUS DOPPLER HISTORY: Left leg swelling / pain COMPARISON STUDY: None. FINDINGS: There is normal compressibility, flow, and augmentation within the bilateral lower extremit y deep venous systems. A 4.6 x 1.5 x 2.3 cm complex left popliteal cyst. IMPRESSION: No DVT within the right or left lower extremity. Electronically signed by: Michael Rees M.D. 06/10/2019 7:02 AM
[2019-06-10 07:19] LABS: Chol HDL Ratio 2; Cholesterol 96 mg/dl (0-200); HDL Cholesterol 52 mg/dl; LDL Cholesterol Calculated 36 mg/dl; NT Pro B Type Natriuretic Pept 1141 pg/ml (0-900); Triglycerides 42 mg/dl (0-150); VLDL Cholesterol 8 mg/dl
[2019-06-10 07:22] LABS: Partial Thromboplastin Time 65.1 Seconds (21.0-31.0)
[2019-06-10] MEDS: HEPARIN SODIUM/DEXTROSE 25,000 UNITS/500 ML BAG IV SCH (07:58)
[2019-06-10] MEDS: LACTOBACILLUS ACIDOPHILUS 1 GM PACK PO SCH ×3 (07:59→17:06)
[2019-06-10] MEDS: AZITHROMYCIN 250 MG TAB PO SCH (07:59)
[2019-06-10] MEDS: METOPROLOL SUCC 25MG EXT REL TAB PO SCH (07:59)
[2019-06-10] MEDS: PANTOprazole 40 MG TAB PO SCH (07:59)
[2019-06-10 08:04] LABS: BUN Creatinine Ratio 19.3 (10-20); Calcium 8.8 mg/dl (8.5-10.1); Creatinine Clr Calc Pharmacy 73.2 ml/min; Est GFR (African American) 64.3; Est GFR (Non-African American) 55.4; Potassium 3.5 mmol/L (3.5-5.1)
[2019-06-10 08:09] LABS: Albumin Globulin Ratio 0.9 (0.9-2); Globulin 3.3 gm/dl (2.5-4.0); Total Protein 6.3 gm/dl (6.4-8.2); Troponin I 0.018 ng/ml (0-0.045)
--- NOTE | 2019-06-10 11:39 | Cardiology Consultation ---
Date of Consultation June 10, 2019 Assessment & Plan (1) Atrial fibrillation with RVR: 2. Acute diastolic heart failure 3. Presumed coronary artery disease with inferolateral regional wall motion abnormality on echo 4. Chronic venous insufficiency 5. Transaminitis 6. Question right lower lobe pneumonia 7. Dyslipidemia Patient here with new A. fib with RVR. Incidental finding although has been accompanied by mild new exertional dyspnea and acute diastolic heart failure. Duration of atrial fibrillation unclear although normal rhythm/rate documented at PCPs 1 week ago. No significant valvular heart disease on echo. Potentially precipitated by recent upper respiratory illness. Presently reasonably rate controlled with heart rates in the 100s-110s. Well- perfused with mild residual congestion. Recommendations: Start diltiazem 60 mg p.o. 3 times daily. Can titrate up further as needed and likely discontinue metoprolol on discharge. Target resting heart rate less than 100 today, can wean off diltiazem drip as able. Additional dose of IV Lasix today Transition heparin infusion to Eliquis tonight Please keep n.p.o. past midnight for TAMIKO and cardioversion tomorrow if doesn't convert overnight Plan for likely discharge tomorrow post procedure. -- Will revisit GSV ablation as an outpatient as feel CVI contributing to LE pain. Thank you for allowing us to participate in the care of this patient. Please contact with any questions. History of Present Illness Attending Physician: Elias Shay MD History of Present Illness Mrs. See is a very pleasant 64-year-old woman known to me from the outpatient setting here with new atrial fibrillation with RVR. Patient followed by cardiology for history of presumed a artery disease in the setting of prior stress echocardiogram showing a resting inferior wall motion abnormality. Has never had a catheterization prior. Also with a history of paroxysmal supraventricular tachycardia, dyslipidemia and chronic venous insufficiency with known bilateral GSV pathologic reflux. Patient presented to her PCP yesterday with complaints of increased left lower extremity swelling, pain, numbness. Denies any preceding trauma. Reported that right lower extremity seemed slightly more swollen as well but without significant pain. At time of exam was noted to be in A. fib with RVR with heart rate in the 140s and occasional PVC. Transferred to [facility] ED. Patient denied any palpitations, chest pain or presyncope. Does report possibly more short of breath with exertion over the last several days. Of note was seen by PCP approximately 1 week earlier in the setting of chest congestion, productive cough. Started on Augmentin, cough suppressant, anti-inflammatories. Docum ented to be in normal rhythm at that time. In ER started on diltiazem and heparin infusion. Given IV Lasix x1 and started on ceftriaxone/azithromycin for possible right lower lobe pneumonia. Left foot x-ray unremarkable. Bilateral venous duplex negative for DVT. Since admission maintained on diltiazem with heart rates in the 100s 110s. Asymptomatic this morning. Allergies Allergy/AdvReac Type Severity Reaction Status Date / Time meloxicam Allergy Intermediate RASH Verified 06/09/19 11:29 Home Medications Home Medications Medication Instructions Recorded Confirmed Type acetaminophen 500 mg tablet 500 mg PO .COMPLEX tab 02/12/19 06/09/19 History ascorbic acid (vitamin C) 1,000 mg 1 gm PO DAILY tab 02/12/19 06/09/19 History tablet atorvastatin 20 mg tablet 20 mg PO QPM tab 02/12/19 06/09/19 History cholecalciferol (vitamin D3) 25 1,000 units PO DAILY 02/12/19 06/09/19 History mcg (1,000 unit) tablet famotidine 20 mg tablet 20 mg PO DAILY #90 tab 02/12/19 06/09/19 History metoprolol succinate 25 mg 25 mg PO DAILY #90 tab 02/23/19 06/09/19 Rx tablet,extended release 24 hr omeprazole 20 mg capsule,delayed 20 mg PO DAILY #90 cap 03/23/19 06/09/19 Rx release amoxicillin 875 mg-potassium 1 tab PO BID #20 tab 06/03/19 06/09/19 Rx clavulanate 125 mg tablet promethazine 6.25 mg-codeine 10 5 ml PO Q6H PRN #118 ml 06/03/19 06/09/19 Rx mg/5 mL syrup multivitamin 1 tab PO DAILY 06/09/19 06/09/19 History Patient History Medical History Atherosclerotic heart disease of [place] coronary artery without angina pectoris (Acute) Chest pain (Acute) Chronic venous insufficiency (Acute) Crystalluria (Acute) Diverticulitis (Acute) Diverticulosis of colon (Acute) Dyslipidemia (Chronic) Elevated blood sugar level (Resolved) GERD without esophagitis (Chronic) High risk medication use (Acute) History of acute renal failure (Resolved) Orthostatic hypotension (Acute) PSVT (paroxysmal supraventricular tachycardia) (Acute) Vaginal prolapse (Acute) Surgical History S/P total knee arthroplasty (Resolved) Social History Preferred Language: Sami Communication Ability: Effective 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 Beliefs That Will Affect Care: None marital status: Current Living Situation: Spouse current occupational status: employed Feels Safe at Home: Yes Smoking Status: Never smoker Hx Alcohol Use: No Hx Substance Use: No caffeine: Yes Dental Care, Regularly: No Physical Activity Frequency: Does not Exercise Seatbelt Use: always Sunscreen Use: Yes Review of Systems Review of Systems: All systems reviewed & are unremarkable except as noted in HPI & below Physical Exam Physical Exam: General: Comfortable, no acute distress, obese Eyes: Sclerae anicteric, extraocular movements intact HENT: Oropharynx clear mucous membranes moist Neck: Normal carotid upstrokes, no bruits. JVP approximately 9-10 Lungs: Clear to auscultation except for few crackles at left base Cardiac: Irregularly irregular, tachycardic, no murmurs Vascular: 2+ radial bilaterally. Diffuse telangiectasias, reticular veins above and below the knee bilaterally Abdomen: Soft, nontender, nondistended, positive bowel sounds. Extremities: Well perfused, 1+ lower extremity edema to above the knee Neuro: Nonfocal Psych: Alert orient x3, normal affect and mood Results & Data Vital Signs (Past 12 Hours) Vital Signs Temp Pulse Resp BP Pulse Ox 06/10/19 11:15 97.3 F L 105 H 18 115/78 92 06/10/19 08:26 97.5 F L 105 H 18 101/60 91 06/10/19 04:42 97.9 F 97 H 19 106/63 94 06/09/19 23:36 97.7 F 104 H 18 109/69 92 Diagnostic Findings Stress echo 11/2014: Negative at 99% MPHR, 7 METS, baseline inferior wall motion abnormality, negative stress EKG, frequent PACs and PVCs and brief episode of SVT. No chest pain. Resting EF 50 to 55%, grade 1 diastolic dysfunction Lower extremity venous reflux study (08/2015)--right GSV dilated with reflux. Right SSV normal. Left GSV dilated in the upper thigh and shows reflux at the SFJ junction. Left SSV normal ECG Additional Comments: EKG: Atrial fibrillation with RVR, ventricular rate 143, occasional PVC, no dynamic ST changes per PG Care Time/CCT Total # of Minutes Spent Total Time Spent with Patient: Total time spent is greater than 50% in coordination of care (as documented) at patient's floor/unit and/or counseling patient:
[2019-06-10] MEDS: dilTIAZem HCl 125 MG in DEXTROSE 5% 100 ML IV SCH (11:57)
--- NOTE | 2019-06-10 15:16 | Hospitalist Progress Note ---
Date of Service June 10, 2019 Assessment & Plan (1) Atrial fibrillation with RVR: New onset (documented normal rhythm 1 week prior), possibly exacerbated by recent pneumonia/URI Continue metoprolol XL, reasonable rate control on diltiazem drip @ 10mg/hr - conversion to approximately 90mg TID PO diltiazem Heparin IV drip to convert to Eliquis tonight. TTE - unchanged from prior Discussed with Dr Jason (cardiology) (2) Acute on chronic diastolic CHF (congestive heart failure): Rate related. Cause of recent leg edema noted by patient Additional lasix IV 20mg today as per cardiology recommendation (3) Atherosclerotic heart disease of [place] coronary artery without angina pectoris: Presumed from prior resting echo. ASA, metoprolol, atorvastatin (4) Dyslipidemia: LDL 36 @ goal Continue atorvastatin (5) Right lower lobe pneumonia: Recently treated with Augmentin suspected pneumonia as an outpatient. CXR -> possible PNA vs. atelactasis ceftriaxone 1 g IV daily plus azithromycin 250 oral daily (6) UTI (urinary tract infection): Asymptomatic. Suspect bacteruria. Will await culture. (7) GERD without esophagitis: Omeprazole switched to pantoprazole as per hospital formulary (8) Obesity: Clinically suspected obstructive sleep apnea. Consider outpatient sleep study. (9) Elevated LFTs: Suspect from liver congestion from heart failure. LFTs WNL in 2017 labs. Trending down. Repeat CMP daily until normalized. (10) DVT prophylaxis: Heparin IV switching to eliquis Subjective Revisited history with the patient. Increased leg swelling more on the left than right, asymmetry usual for her when her legs swell, occurring for the approximate 1 week prior to admission with associated pain. Went to see her primary care physician in the office and was noticed to be in atrial fibrillation with a rapid rate. She was recently treated for a lower re spiratory infection with Augmentin for 10 days on June 03 but does not think she ever got over the this fully and is being coughing up more yellow phlegm in the last 2 days. Since admission she is feeling much improved. She denies any chest pain, palpitations, shortness of breath, orthopnea, PND, claudication. Review of Systems Review of Systems: All systems reviewed & are unremarkable except as noted in HPI & below Physical Exam Constitutional: well developed and + obese; no acute distress Eyes: + anicteric sclerae; normal pupil size ENMT: external ear and nose normal, oropharynx normal Neck: trachea midline, no thyromegaly Respiratory: normal respiratory effort, lungs clear to auscultation Cardiovascular: Rate/Rhythm: + irregularly irregular Heart Sounds: normal S1 and normal S2; no murmur Vessels: no JVD (unable to adequately assess due to neck size) Extremities: normal capillary refill and + pedal edema (1+ right 2+ left) Gastrointestinal (Abdomen): normal bowel sounds, soft, nontender, no hepatosplenomegaly Musculoskeletal: no cyanosis or clubbing, extremities motor strength 5/5 Skin: no rashes, warm and dry Neurologic: moves all extremities and awake; no focal motor deficits and not confused Motor/Sensory: no sensory deficit Psychiatric: A+Ox3, euthymic affect Results & Data Vital Signs (Past 12 Hours) Vital Signs Temp Pulse Resp BP Pulse Ox 06/10/19 11:15 97.3 F L 105 H 18 115/78 92 06/10/19 08:26 97.5 F L 105 H 18 101/60 91 06/10/19 04:42 97.9 F 97 H 19 106/63 94 PG Care Time/CCT Total # of Minutes Spent Total Time Spent with Patient: Total time spent is greater than 50% in coordination of care (as documented) at patient's floor/unit and/or counseling patient: (1) UTI (urinary tract infection) Urinary tract infection type: site unspecified Hematuria presence: without hematuria Qualified Code(s): N39.0 - Urinary tract infection, site not specified (2) Right lower lobe pneumonia Pneumonia type: due to unspecified organism Qualified Code(s): J18.1 - Lobar pneumonia, unspecified organism (3) Obesity Obesity type: due to excess calories Obesity classification: adult class 2 (BMI 35 - 39.9) Serious obesity comorbidity presence: with serious comorbidity Body mass index: unspecified BMI Qualified Code(s): E66.01 - Morbid (severe) obesity due to excess calories (4) Atherosclerotic heart disease of [place] coronary artery without angina pectoris [place] vs. transplanted heart: [place] heart Qualified Code(s): I25.10 - Atherosclerotic heart disease of [place] coronary artery without angina pectoris
[2019-06-10] MEDS ORDERED: dilTIAZem HCL 30 MG TAB PO ONE (15:30)
[2019-06-10] MEDS ORDERED: FUROSEMIDE 20 MG in SYRINGE 0 ML IV ONE (15:45)
[2019-06-10] MEDS: cefTRIAXone SODIUM 2,000 MG in DEXTROSE 5% 50 ML IV SCH (21:24)
[2019-06-10] MEDS: APIXABAN 5 MG TABLET PO SCH (21:25)
[2019-06-10] MEDS: dilTIAZem HCL 30 MG TAB PO SCH (21:25)
[2019-06-10] MEDS: ATORVASTATIN 20 MG TAB PO SCH (21:26)
[2019-06-11 06:00] LABS: Partial Thromboplastin Ratio 0.9; Partial Thromboplastin Time 24.8 Seconds (21.0-31.0)
[2019-06-11 06:27] LABS: Albumin Level 3.1 gm/dl (3.4-5.0); BUN Creatinine Ratio 12.8 (10-20); Calcium 8.7 mg/dl (8.5-10.1); Creatinine Clr Calc Pharmacy 65.2 ml/min; Est GFR (African American) 55.9; Est GFR (Non-African American) 48.2; Magnesium 1.9 mg/dl (1.8-2.4); Potassium 3.7 mmol/L (3.5-5.1)
[2019-06-11 06:29] LABS: Albumin Globulin Ratio 0.9 (0.9-2); Bilirubin,Total 0.8 mg/dl (0.2-1); Globulin 3.3 gm/dl (2.5-4.0); Total Protein 6.4 gm/dl (6.4-8.2)
--- NOTE | 2019-06-11 07:06 | Anesthesiology Consultation ---
Date of Service June 11, 2019 Assessment & Plan (1) Encounter for pre-operative examination: Chart Review Chart Review: Acceptable Risk for Surgery and Patient NOT seen in Pre Admission Testing Consults Requested none cardiology following History Surgery Operation Date: 06/10/19 07:30 Proposed Procedures p Transesophageal Echo w/Anesthesia - Emil Jason MD s Cardioversion Sieve Maker w/Anesthesia - Emil Jason MD Operation Date: 06/11/19 07:30 Proposed Procedures p Transesophageal Echo w/Anesthesia - Emil Jason MD s Cardioversion Sieve Maker w/Anesthesia - Emil Jason MD Height/Weight Height: 5 ft 9 in Weight: 115.8 kg Allergies Allergy/AdvReac Type Severity Reaction Status Date / Time meloxicam Allergy Intermediate RASH Verified 06/09/19 11:29 Medications Home Medications Medication Instructions Recorded Confirmed Last Taken acetaminophen 500 mg tablet 500 mg PO .COMPLEX tab 02/12/19 06/09/19 Unknown ascorbic acid (vitamin C) 1,000 mg 1 gm PO DAILY tab 02/12/19 06/09/19 06/09/19 tablet atorvastatin 20 mg tablet 20 mg PO QPM tab 02/12/19 06/09/19 06/08/19 cholecalciferol (vitamin D3) 25 1,000 units PO DAILY 02/12/19 06/09/19 06/08/19 mcg (1,000 unit) tablet famotidine 20 mg tablet 20 mg PO DAILY #90 tab 02/12/19 06/09/19 06/09/19 metoprolol succinate 25 mg 25 mg PO DAILY #90 tab 02/23/19 06/09/19 06/09/19 tablet,extended release 24 hr omeprazole 20 mg capsule,delayed 20 mg PO DAILY #90 cap 03/23/19 06/09/19 06/09/19 release amoxicillin 875 mg-potassium 1 tab PO BID #20 tab 06/03/19 06/09/19 06/09/19 clavulanate 125 mg tablet promethazine 6.25 mg-codeine 10 5 ml PO Q6H PRN #118 ml 06/03/19 06/09/19 Unknown mg/5 mL syrup multivitamin 1 tab PO DAILY 06/09/19 06/09/19 06/09/19 Active Medications Generic Name Dose Route Start Last Admin Trade Name Freq PRN Reason Stop Dose Admin Apixaban 5 mg 06/10/19 21:00 06/10/19 21:25 Eliquis PO 07/10/19 20:59 5 mg BID DIONICIO Administration Atorvastatin Calcium 20 mg 06/09/19 21:00 06/10/19 21:26 Lipitor PO 07/09/19 20:59 20 mg QPM DIONICIO Administration Azithromycin 250 mg 06/09/19 22:00 06/10/19 07:59 Zithromax PO 06/16/19 21:59 250 mg DAILY DIONICIO Administration Diltiazem HCl 90 mg 06/10/19 21:00 06/10/19 21:25 Cardizem PO 07/10/19 20:59 90 mg TID IDONICIO Administration Ceftriaxone Sodium 2,000 mg/ 70 mls @ 140 mls/hr 06/09/19 20:00 06/10/19 22:40 Dextrose IV 06/16/19 19:59 Infused Q24H DIONICIO Infusion Protocol Lactobacillus Acidophilus 1 gm 06/09/19 17:00 06/10/19 17:06 Floranex Granules/Powder Packet PO 07/09/19 16:59 1 gm TIDM DIONICIO Administration Metoprolol Succinate 25 mg 06/09/19 17:00 06/10/19 07:59 Toprol Xl PO 07/09/19 16:59 25 mg DAILY DIONICIO Administration Pantoprazole Sodium 40 mg 06/10/19 09:00 06/10/19 07:59 Protonix PO 07/10/19 08:59 40 mg DAILY DIONICIO Administration Past Medical History Medical History Atherosclerotic heart disease of [place] coronary artery without angina pectoris (Acute) Chest pain (Acute) Chronic venous insufficiency (Acute) Crystalluria (Acute) Diverticulitis (Acute) Diverticulosis of colon (Acute) Dyslipidemia (Chronic) Elevated blood sugar level (Resolved) GERD without esophagitis (Chronic) High risk medication use (Acute) History of acute renal failure (Resolved) Orthostatic hypotension (Acute) PSVT (paroxysmal supraventricular tachycardia) (Acute) Vaginal prolapse (Acute) Past Surgical History Surgical History S/P total knee arthroplasty (Resolved) Social History Smoking Status: Never smoker Hx Alcohol Use: No Hx Substance Use: No Physical Exam Vital Signs Last Vital Signs Temp 37 C 06/11/19 07:09 Pulse 109 H 06/11/19 04:06 Resp 20 06/11/19 04:06 BP 121/68 06/11/19 04:06 Pulse Ox 90 06/11/19 04:06 Testing Laboratory Results 06/09/19 10:45 06/11/19 05:28 PT 11.8 Seconds (9.0-12.0) 06/09/19 10:45 INR 1.2 (0.9-1.1) H 06/09/19 10:45 APTT 24.8 Seconds (21.0-31.0) 06/11/19 05:28 Hemoglobin A1c 6.3 % (4.5-5.6) H 06/09/19 10:45 Urine Color Dark Yellow 06/09/19 11:35 Urine Appearance Cloudy (Clear) A 06/09/19 11:35 Urine pH 5.0 (4.5-7.5) 06/09/19 11:35 Ur Specific Creole 1.032 (1.000-1.030) H 06/09/19 11:35 Urine Protein 2+ (Negative) H 06/09/19 11:35 Urine Glucose (UA) Negative (Negative) 06/09/19 11:35 Urine Ketones Trace (Negative) H 06/09/19 11:35 Urine Nitrite Negative (Negative) 06/09/19 11:35 Ur Leukocyte Esterase Negative (Negative) 06/09/19 11:35 Urine WBC (Auto) 5-10 /hpf (0-5) H 06/09/19 11:35 Urine RBC (Auto) 0-4 /hpf (0-4) 06/09/19 11:35 U Hyaline Cast (Auto) 1-5 /lpf (0-5) 06/09/19 11:35 U Epithel Cells (Auto) >30 /lpf (0-5) H 06/09/19 11:35 Urine Bacteria (Auto) Negative (Negative) 06/09/19 11:35 Electrocardiogram Date: 06/09/19 Findings: + NSST changes and + AFIB @ (142) Chest X-Ray Date: 06/09/19 cc: HISTORY: Atypical Chest Pain COMPARISON: Chest 12/15/2014. FINDINGS: The cardiac silhouette is mildly enlarged. This is progressed in the interval. Diffuse interstitial vascular thickening has also new from the prior study. This is consistent with mild interstitial pulmonary edema. Small bilateral pleural effusions have also developed in the interval. Hazy appearance of the right lung base. IMPRESSION: 1. Interval development of mild interstitial pulmonary edema and small bilateral pleural effusions. 2. Hazy appearance to the right lung base. This is nonspecific but could be due to atelectasis from the pleural fusion or a developing pneumonia. Electronically signed by: Michael Rees M.D. 06/09/2019 11:19 AM Dictated: 06/09/19 111 Transcribed: 06/09/191116 Echocardiogram Date: 06/10/19 EF: 50-55 RWMA: + hypokinetic (inferior) Other Findings: + atrial enlargement (biatrial), + RVH and + LVH (mild concentric) Valvular Disease: + MR (mild to moderate)
[2019-06-11] MEDS ORDERED: PROPOFOL IV EMULSION 10 MG/ML 20 ML VIAL IV ONE (07:09)
[2019-06-11] MEDS ORDERED: MIDAZOLAM HCL 1 MG/ML 2ML VIAL ONE (07:10)
[2019-06-11] MEDS ORDERED: ATROPINE SULFATE 0.1 MG/ML 10ML SYR IV ONE (07:37)
--- NOTE | 2019-06-11 08:02 | Anesthesiology Progress Note ---
Date of Service June 11, 2019 Anesthesia Post Procedure Vital Signs Vital Signs: Temp Pulse Resp BP BP Pulse Ox 06/11/19 07:23 117 H 20 134/91 96 06/11/19 07:09 37 C 06/11/19 04:06 36.9 C 109 H 20 121/68 90 06/10/19 23:40 36.9 C 95 H 22 104/64 93 06/10/19 19:27 36.4 C L 105 H 18 123/83 93 06/10/19 16:38 36.8 C 100 H 22 122/86 94 06/10/19 15:55 36.5 C 105 H 20 120/88 94 06/10/19 11:15 36.3 C L 105 H 18 115/78 92 06/10/19 08:26 36.4 C L 105 H 18 101/60 91 Pain Intensity Bilateral Leg: Pain Intensity: 1 Transfer of Care Handoff Completed per policy Notes Mental Status: alert / awake / arousable Patient Amnestic to Procedure: Yes Nausea / Vomiting: adequately controlled Pain: adequately controlled Airway Patency, RR, SpO2: stable & adequate BP & HR: stable & adequate and see Notes below Hydration State: stable & adequate Anesthetic Complications: no major complications apparent and Pt Satisfied with anesthetic care Notes: The patient is awake and comfortable. She was unable to be cardioverted despite four shocks.
--- NOTE | 2019-06-11 08:04 | Cardioversion ---
Date of Service June 11, 2019 Electrical Cardioversion Rpt Electrical Cardioversion Report Indication: Atrial fibrillation with RVR Procedure: - Anesthesia with propofol per Dr. Brenner. - Underwent TAMIKO which revealed no left atrial appendage clot. - Pads placed in AP position. - Received synchronized shocks at 200J, 200J, 300J, 300J. - Remained in atrial fibrillation throughout. - No apparent post-procedure complications. Summary: 1. Unsuccessful external electrical cardioversion. Recommendations: - Continue rate control with diltiazem, metoprolol. - Continue anticoagulation with Eliquis. [facility] Cardiac Procedure Charge Cardiovascular Procedure 1: Cardiovascular: Cardioversion electric, ext
--- NOTE | 2019-06-11 08:14 | Cardiology Progress Note ---
Date of Service June 11, 2019 Assessment & Plan (1) Atrial fibrillation with RVR: 2. Acute diastolic heart failure 3. Presumed coronary artery disease with inferolateral regional wall motion abnormality on echo 4. Chronic venous insufficiency 5. Transaminitis 6. Question right lower lobe pneumonia 7. Dyslipidemia Attempted cardioversion this morning unsuccessful. As minimally symptomatic will go forward with rate control strategy. Well perfused on exam with minimal residual congestion. - Can transition diltiazem to Cardizem CD 300mg daily - Continue current toprol XL - Continue Eliquis - Home on PO lasix 20mg daily - OK from cardiac standpoint for discharge later today. - Follow-up with me in 1-2 weeks with repeat BMP at that time. -- Will revisit GSV ablation as an outpatient as feel CVI contributing to LE pain. Subjective No chest pain, palpitations overnight. Remained in atrial fibrillation with HR primarily in 100-120s. Negative 500 yesterday after IV lasix. Attempted cardioversion this morning unsuccessful. Review of Systems Review of Systems: All systems reviewed & are unremarkable except as noted in HPI & below Physical Exam Constitutional: well developed and + acute distress Eyes: PERRL, conjunctivae normal, anicteric sclerae Respiratory: normal respiratory effort, lungs clear to auscultation Cardiovascular: Rate/Rhythm: + tachycardic and + irregularly irregular Heart Sounds: no murmur Gastrointestinal (Abdomen): normal bowel sounds, soft, nontender, no hepatosplenomegaly Skin: no rashes, warm and dry Neurologic: moves all extremities and awake Psychiatric: A+Ox3, euthymic affect Results & Data Vital Signs (Past 12 Hours) Vital Signs Temp Pulse Resp BP BP Pulse Ox 06/11/19 07:23 117 H 20 134/91 96 06/11/19 07:09 98.6 F 06/11/19 04:06 98.4 F 109 H 20 121/68 90 06/10/19 23:40 98.4 F 95 H 22 104/64 93 PG Care Time/CCT Total # of Minutes Spent Total Time Spent with Patient: Total time spent is greater than 50% in c oordination of care (as documented) at patient's floor/unit and/or counseling patient:
[2019-06-11] MEDS: AZITHROMYCIN 250 MG TAB PO SCH (08:44)
[2019-06-11] MEDS: dilTIAZem HCL 30 MG TAB PO SCH (08:44)
[2019-06-11] MEDS: METOPROLOL SUCC 25MG EXT REL TAB PO SCH (08:44)
[2019-06-11] MEDS: PANTOprazole 40 MG TAB PO SCH (08:44)
[2019-06-11] MEDS ORDERED: ASPIRIN 81 MG ECTAB PO SCH (09:00)
[2019-06-11] MEDS: APIXABAN 5 MG TABLET PO SCH (09:25)
[2019-06-11] MEDS ORDERED: dilTIAZem HCL 300 MG CAPCR PO SCH (10:15)
[2019-06-11] MEDS: LACTOBACILLUS ACIDOPHILUS 1 GM PACK PO SCH ×3 (11:41→16:53)
[2019-06-11] MEDS ORDERED: CEFDINIR 300 MG CAP PO STA (17:20)
--- NOTE | 2019-06-11 17:32 | Discharge Summary ---
Date of Service June 11, 2019 Discharge Data Allergies Allergy/AdvReac Type Severity Reaction Status Date / Time meloxicam Allergy Intermediate RASH Verified 06/09/19 11:29 Consultations 06/09/19 13:49 ED Decision to Admit Stat 06/09/19 16:50 Consult Cardiology Routine Procedures Performed Operation Date: 06/10/19 07:30 <No data on this case meets the specified criteria> Operation Date: 06/11/19 07:30 Actual Procedures p Transesophageal Echo w/Anesthesia - Emil Jason MD s Cardioversion - Emil Jason MD Ordered Studies 06/09/19 16:55 US venous doppler [facility] Urgent Hospital Course (1) Atrial fibrillation with RVR: New onset (documented normal rhythm 1 week prior), possibly exacerbated by recent pneumonia/URI Continue metoprolol XL, reasonable rate control on diltiazem drip @ 10mg/hr - conversion to approximately 90mg TID PO diltiazem Heparin IV drip to convert to Eliquis tonight. TTE - unchanged from prior Discussed with Dr Jason (cardiology) (2) Acute on chronic diastolic CHF (congestive heart failure): Rate related. Cause of recent leg edema noted by patient Additional lasix IV 20mg today as per cardiology recommendation (3) Atherosclerotic heart disease of [place] coronary artery without angina pectoris: Presumed from prior resting echo. ASA, metoprolol, atorvastatin (4) Dyslipidemia: LDL 36 @ goal Continue atorvastatin (5) Right lower lobe pneumonia: Recently treated with Augmentin suspected pneumonia as an outpatient. CXR -> possible PNA vs. atelactasis ceftriaxone 1 g IV daily plus azithromycin 250 oral daily (6) UTI (urinary tract infection): Asymptomatic. Suspect bacteruria. Will await culture. (7) GERD without esophagitis: Omeprazole switched to pantoprazole as per hospital formulary (8) Obesity: Clinically suspected obstructive sleep apnea. Consider outpatient sleep study. (9) Elevated LFTs: Suspect from liver congestion from heart failure. LFTs WNL in 2017 labs. Trending down. Repeat CMP daily until normalized. (10) DVT prophylaxis: Heparin IV switching to eliquis Discharge Plan Discharge Items Patient Disposition: Home - Self-Care Reason For Visit: SHORTNESS OF BREATH, LEG PAIN Discharge Diagnosis: New onset atrial fibrillation with rapid ventricular rate Community acquired pneumonia Condition on Discharge: Good Activity: Resume your previous activity Non-emergency contact: Primary Care Provider Call non-emergency contact if: you have any medication questions and your symptoms worsen Follow-up/Referrals: Alina Luna CRNP [Primary Care Provider] - 06/15/19 10:30 am (Please, follow up at [facility] with Alina ADAME on SaturdayJune 15 at 10:30 am. *If you need to change this appointmentn, call the office at [phone].) Emil Jason MD [Physician] - 06/29/19 9:00 am (Please, follow up at [facility] Cardiology Office with Dr. Jason' night assistant, Na Angela PA-C, on SaturdayJune 29 at 9:00 am. *The office is located in [address] of [facility], next to this hospital. If you need to change this appointment, call their office [phone].) Diet: Heart Healthy Addtl Attending Provider Instructions: You were admitted due to leg pain and new onset atrial fibrillation with rapid ventricular rate. This was treated with rate controlling medications and you were started on diltiazem to slow your heart rate. You were also started on furosemide (diuretic) to help take off fluid which occurred due to your increased heart rate. Unfortunately trial at cardioversion (converting you back into a normal rhythm) was not successful. This rhythm places you at a higher risk of stroke which is offset by taking a blood thinning medication (apixaban). This medication makes normal bleeding events worse. If you fall and hit your head you should present to the ER even if you feel well. Please follow up with your cartoon designer at the appointment above. You were also diagnosed with pneumonia. Since you recently finished an antibiotic Augmentin your antibiotics have been changed to those prescribed below. Please finish the full course prescribed. Please follow up with your primary care physician as above. Pending Studies at Discharge: No Stand-Alone Forms: My [facility] [employer], Smoking Cessation Medications and DC Order Prescriptions: New cefdinir 300 mg capsule 300 mg PO BID 5 Days Qty: 10 RF: 0 azithromycin 250 mg tablet 250 mg PO DAILY 2 Days Qty: 2 RF: 0 Eliquis 5 mg Tablet 5 mg PO BID Qty: 60 RF: 0 diltiazem HCl [Cardizem CD] 300 mg Capsule,Extended Release 24hr 300 mg PO QAM Qty: 30 RF: 0 aspirin [Ecotrin Low Strength] 81 mg Tablet,Delayed Release (Dr/Ec) 81 mg PO QAM Qty: 90 RF: 0 furosemide [Lasix] 20 mg tablet 20 mg PO DAILY Qty: 30 RF: 0 Continued metoprolol succinate 25 mg tablet extended release 24 hr 25 mg PO DAILY Qty: 90 RF: 1 omeprazole 20 mg capsule,delayed release(DR/EC) 20 mg PO DAILY Qty: 90 RF: 3 acetaminophen 500 mg tablet 500 mg PO .COMPLEX RF: 0 atorvastatin 20 mg tablet 20 mg PO QPM RF: 0 famotidine 20 mg tablet 20 mg PO DAILY Qty: 90 RF: 0 ascorbic acid (vitamin C) 1,000 mg tablet 1 gm PO DAILY RF: 0 cholecalciferol (vitamin D3) [Vitamin D3] 1,000 unit tablet 1,000 units PO DAILY RF: 0 multivitamin Tablet 1 tab PO DAILY RF: 0 Discontinued amoxicillin-pot clavulanate [Augmentin] 875-125 mg tablet 1 tab PO BID Qty: 20 RF: 0 promethazine-codeine 6.25-10 mg/5 mL syrup 5 ml PO Q6H PRN (Reason: cough) Qty: 118 RF: 0 Krames/Other Patient Handouts: Prediabetes, Diabetes Healthy Meals, Diabetes Carbs, Diabetes Exercise Benefits, Fibrillation Atrial Dc, Apixaban Oral tablet, A1C Admission Data Admit Date/Time: 06/09/19 16:50 Attending Provider: Elias Shay Admit Provider: Roopa Harvey Primary Care Provider: Alina Luna Other Providers: Roopa Harvey ; Emil Hampton
[2019-06-11] MEDS ORDERED: CEFDINIR 125 MG/5 ML 60 ML BTL PO ONE (18:30)
== END 2019-06-11 19:24 | disposition home or self-care (01) | DRG 308 ==
LOC: ED 10:28 → SUATTDRO 16:50 → 2E 16:50

== ENCOUNTER 2023-10-28 12:01 | Inpatient (IN) ==
[2023-10-28 12:54] LABS: Base Excess VBG -3.8 mEq/L; HCO3 VBG 22 mmol/L; Oxygen Saturation VBG < 60.0 %; PCO2 VBG 39 mmHg (38-50); PO2 VBG 21 mmHg; pH VBG 7.35 (7.36-7.41)
[2023-10-28 13:08] LABS: BUN Creatinine Ratio 11.6 (10-20); Calcium 9.4 mg/dl (8.6-10.3); Creatinine Clr Calc Pharmacy 36.1 ml/min; Est GFR (African American) 26.6 ml/min; Est GFR (Non-African American) 22.9 ml/min; Potassium 4.4 mmol/L (3.5-5.1)
[2023-10-28 13:11] LABS: Troponin I High Sensitivity 15.4 pg/ml (0-14)
--- NOTE | 2023-10-28 13:40 | XRay Report ---
XR chest 2V PA/lateral CLINICAL HISTORY: Chest pain, nonspecific COMPARISON STUDY: Chest radiograph August 06, 2023. FINDINGS: Lung volumes are normal. Right mid and lower lung airspace opacity has developed since ches t radiograph of August 06, 2023. Probable trace right pleural effusion. There is no pneumothorax. Teresa ear left basilar densities favor atelectasis. Cardiomegaly is unchanged. There is no evidence for pul monary edema. IMPRESSION: 1. Interval development of right mid and lower lung airspace opacity suggestive of pneumonia. Post tr eatment radiographs to ensure resolution is recommended. 2. Suspected trace right pleural effusion. 3. Cardiomegaly without evidence for pulmonary edema. ACT 112: Negative or not required by law. Electronically signed by: Broderick Serna M.D. 10/28/2023 1:38 PM
[2023-10-28 13:45] LABS: Hematocrit (blood only) 40.1 % (37.0-47.0); Hemoglobin 12.9 g/dl (12.0-16.0); Mean Corpuscular Hemoglobin 28.5 pg (25.0-34.0); Mean Corpuscular Hgb Conc 32.2 g/dL (32.0-36.0); Mean Corpuscular Volume 88.7 fL (80.0-100.0); Mean Platelet Volume 10.8 fL (9.4-12.4); Platelet Count 220 K/uL (130-400); RDW Coefficient of Variation 15.3 % (11.5-14.5); RDW Standard Deviation 49.4 fL (36.4-46.3); Red Blood Count 4.52 M/uL (4.20-5.40); White Blood Count 12.76 K/ul (4.8-10.8)
[2023-10-28 13:46] LABS: Basophils # (auto) 0.04 K/uL (0.00-0.20); Basophils % (auto) 0.3 %; Echinocytes 1+; Eosinophils # (auto) 0.04 K/uL (0.00-0.50); Eosinophils % (auto) 0.3 %; Immature Granulocytes # (auto) 0.05 K/uL (0.01-0.20); Immature Granulocytes % (auto) 0.4 %; Lymphocytes # (auto) 1.39 K/uL (1.20-3.40); Lymphocytes % (auto) 10.9 %; Monocytes # (auto) 0.35 K/uL (0.11-0.59); Monocytes % (auto) 2.7 %; Neutrophils # (auto) 10.89 K/uL (1.40-6.50); Neutrophils % (auto) 85.4 %
[2023-10-28] MEDS: AZITHROMYCIN 250 MG TAB PO ONE (15:04)
[2023-10-28] MEDS: cefTRIAXone SODIUM 2,000 MG/50 ML BAG IV STA (15:04)
--- NOTE | 2023-10-28 15:07 | History & Physical Report ---
Date of Service October 28, 2023 Assessment & Plan (1) Community acquired bacterial pneumonia: Plan: Community-acquired pneumonia, coronavirus with ?superimposed bacterial pneumonia Patient is with a leukocytosis, tachycardia, tachypnea, and identified source of infection. She meets sepsis criteria. Blood cultures, sputum culture, lactate ordered on admit. Antibiotics were given on arrival, cultures may be sterilized. Patient does have history of CHF however no pulmonary edema is noted and she has had 3 days of diarrhea and appears volume contracted at time of assessment. 1L Plasma-Lyte bolus ordered, will continue to clinically reassess and give additional 500 cc boluses up to ideal body weight of 1977 cc or evidence of worsening CHF. CXR: Right and midlung lower airspace opacity consistent with pneumonia. Trace right pleural effusion. No evidence of pulmonary edema. -Bio fire negative Patient is with 1 week of viral prodrome however rapidly worsened in the last 2 days. Given concurrent leukocytosis, poor clinical appearance, and sudden wor sening with brown sputum production will treat for potential superimposed bacterial pneumonia on non-COVID coronavirus. PCT added Continue Rocephin/azithromycin. MRSA nares pending No history of ESBL infections 6 L nasal cannula, weaned to 4 L. Goal SpO2 greater than 90%. No home oxygen required (2) Mild CAD: Plan: CAD, history of diastolic CHF Continue statin, beta-enrike BNP is mildly elevated at 338 without baseline for comparison. No pulmonary edema on chest x-ray. Lasix held, fluids as noted Troponin on admission 15.4, repeat pending. Likely demand. No chest pain at any point Admitting EKG: A-fib with rate 109, nonspecific ST changes without territorial elevation/depressions. - BNP is mildly elevated without baseline for comparison (3) Afib: Plan: A-fib Admitting EKG A-fib with rate 109 Continue amiodarone Continue apixaban Magnesium 1.7 on admit, 1 bag IV + PO ordered, goal 2.0 (4) Chronic Kidney Disease: Plan: CKD Baseline creatinine 1.51.7 Patient has an KRYS, Cr on admit 2.15 w/ PNA -No evidence of pulmonary edema, soft tissue swelling but no lower extremity edema at time of admission. Suspect she is volume contracted is a poor intake and diarrhea for 3 days. Suspect prerenal Fluids as noted Trend BMP daily (5) HTN (hypertension): Plan: Hypertension On amiodarone, diltiazem, losartan, metoprolol, Lasix FERRY HAND. Patient was hypotensive on arrival, fluids as noted. Losartan held for KRYS and hypotension. Patient took metoprolol and diltiazem today, continue 4/2 hold for hypotension Plan DVT: Anticoagulated Disposition: PCU for A-fib with RVR CODE STATUS: Full code Diet: Heart healthy History of Present Illness Primary Care Provider: DEEP Downey Lindsey is a 68-year-old female with a past medical history of GERD, CKD, hypertension, dyslipidemia, A-fib, chronic venous insufficiency, mild CAD who presented to her PCP with 1 week of cough and shortness of breath much worse in the last 72 hours, in PCP office was hypotensive and ill-appearing and was transferred to the ER by ambulance. She is tachycardic, tachypneic, and mildly hypoxic in the ER with imaging consistent with pneumonia. 1 week cough, dyspnea which suddenly worsened in the last 3 days and is much worse in the last 24 hours . Is also developed +brown sputum production with cough. +night sweats, chills at home. Not sure if she had a fever No nausea or vomiting. +dry heaves. +diarrhea for 2 days. No bloodyblack bowel movements. Has had almost nothign to eat/drink except water the last 3 days No home hoxygen requirement normally Has been taking medications, did take her morning medication Medical History: Reviewed Medications: Reviewed Surgical History: Reviewed Family history: Reviewed Allergies: Reviewed Social History:No tobacco use. No etoh use. Code Status: Full Code Allergies Allergy/AdvReac Type Severity Reaction Status Date / Time meloxicam Allergy Intermediate RASH Verified 10/28/23 15:25 Home Medications Medication Instructions Recorded Confirmed Type acetaminophen 500 mg tablet 1,000 mg PO UD PRN Pain 02/12/19 10/28/23 History ascorbic acid (vitamin C) 1,000 mg 1,000 mg PO BID 02/12/19 10/28/23 History tablet cholecalciferol (vitamin D3) 25 1,000 units PO BID 02/12/19 10/28/23 History mcg (1,000 unit) tablet (Vitamin D3) multivitamin 1 tab PO QAM 06/09/19 10/28/23 History magnesium 250 mg tablet 250 mg PO QAM 06/29/19 10/28/23 History calcium carbonate 500 mg calcium 500 mg PO BID 09/05/20 10/28/23 History (1,250 mg) tablet diclofenac sodium 1 % topical gel 2 g topical QID PRN Pain 05/01/22 10/28/23 History metoprolol succinate 50 mg 50 mg PO QPM #90 tabs 09/17/22 10/28/23 Rx tablet,extended release 24 hr atorvastatin 20 mg tablet 20 mg PO QPM #90 tabs 10/17/22 10/28/23 Rx potassium chloride 20 mEq 20 meq PO QAM #90 tabs 01/03/23 10/28/23 Rx tablet,extended release(part/cryst) (Klor-Con M) amiodarone 100 mg tablet 100 mg PO DAILY #90 tabs 01/25/23 10/28/23 Rx omeprazole 20 mg capsule,delayed 20 mg PO Q OTHER DAY #90 caps 01/25/23 10/28/23 Rx release diltiazem HCl 240 mg 240 mg PO DAILY #90 caps 04/08/23 10/28/23 Rx capsule,extended release 24 hr apixaban 5 mg tablet (Eliquis) 5 mg PO BID #180 tabs 08/08/23 10/28/23 Rx furosemide 20 mg tablet (Lasix) 20 mg PO .COMPLEX #120 tabs 08/08/23 10/28/23 Rx losartan 25 mg tablet 25 mg PO DAILY #90 tabs 08/08/23 10/28/23 Rx Past Med/Surg History Medical History Dermatitis Arthritis Acute diastolic CHF (congestive heart failure) (2019) Obesity Vaginal prolapse Orthostatic hypotension GERD without esophagitis Diverticulosis of colon Crystalluria Diverticulitis Surgical History History of tubal ligation History of colonoscopy History of tooth extraction S/P total knee arthroplasty Family History Mother Family history of diabetes mellitus Denies family history of Ovarian cancer Prostate cancer Myocardial infarction Breast cancer Colorectal cancer Social History Smoking Status: Never smoker Second Hand Exposure: Yes ([employer]/PLACE OF WORK); Do You Dip or Chew Tobacco: No; Hx Alcohol Use: No Hx Substance Use: No Preferred Language: Portuguese Communication Ability: Effective Visual Impairment: Limited Hearing Ability: Hard of Hearing 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 NAD. Cooperative. HEENT: Atraumatic, normocephalic. Mucous membranes tacky. Vision and hearing grossly intact Pulm: Tachypneic, diminished in the bases. No rales no wheezing symmetrical chest rise. No increased work of breathing. No respiratory distress. Cardiac: Irregular, tachycardic rate ranging from 1001 30. Radial pulses intact and symmetrical. Abdominal: Nontender, nondistended, soft. BS present. Extremities: Soft tissue swelling bilaterally; no pitting edema in the lower extremities at time of admission Results & Data Results & Data Vital Signs (Past 12 Hours) Vital Signs Temp Pulse Resp BP Pulse Ox O2 Del Method O2 Flow Rate 10/28/23 14:00 115 H 27 H 92 6 10/28/23 13:50 107 H 31 H 93 10/28/23 13:40 106 H 25 H 92 10/28/23 13:30 104 H 27 H 93 10/28/23 13:23 29 H 10/28/23 13:00 106 H 18 90 10/28/23 12:52 91 Nasal Cannula 6 10/28/23 12:52 87 L Nasal Cannula 2 10/28/23 12:50 107 H 15 92 10/28/23 12:40 108 H 24 87 L 10/28/23 12:30 130 H 22 85 L 10/28/23 12:25 Nasal Cannula 2 10/28/23 12:24 112 H 10/28/23 12:20 110 H 19 93 10/28/23 12:13 107 H 24 82 L 10/28/23 11:51 36.5 C 120 H 34 H 120/95 94 Room Air PG Care Time/CCT Total # of Minutes Spent Total Time Spent with Patient: Total time spent is greater than 50% in coordination of care (as documented) at patient's floor/unit and/or counseling patient: Coding Level of Care Code 92467 INT INP/OBS CARE 3/75MIN Diagnoses Community acquired bacterial pneumonia J15.9 Mild CAD I25.10 Afib I48.91 Chronic kidney disease, unspecified CKD stage N18.9 Chronic kidney disease stage: unspecified stage Primary hypertension I10 Hypertension type: primary hypertension (4) Chronic Kidney Disease Chronic kidney disease stage: unspecified stage Qualified Code(s): N18.9 - Chronic kidney disease, unspecified (5) HTN (hypertension) Hypertension type: primary hypertension Qualified Code(s): I10 - Essential (primary) hypertension
[2023-10-28 15:22] LABS: Magnesium 1.7 mg/dl (1.7-2.4)
[2023-10-28 15:40] LABS: Adenovirus PCR Not Detected (NotDetected); Bordetella parapertussis PCR Not Detected (NotDetected); Bordetella pertussis PCR Not Detected (NotDetected); Chlamydia pneumoniae PCR Not Detected (NotDetected); Coronavirus 229E PCR Not Detected (NotDetected); Coronavirus CoV-2 (COVID19)PCR Not Detected (NotDetected); Coronavirus HKU1 PCR Not Detected (NotDetected); Coronavirus NL63 PCR Not Detected (NotDetected); Coronavirus OC43PCR DETECTED (NotDetected); Human Metapneumovirus PCR Not Detected (NotDetected); Influenza A PCR Not Detected (NotDetected); Influenza B PCR Not Detected (NotDetected); Mycoplasma pneumoniae PCR Not Detected (NotDetected); Parainfluenza Virus 1 PCR Not Detected (NotDetected); Parainfluenza Virus 2 PCR Not Detected (NotDetected); Parainfluenza Virus 3 PCR Not Detected (NotDetected); Parainfluenza Virus 4 PCR Not Detected (NotDetected); Respiratory Syncytial VirusPCR Not Detected (NotDetected); Rhinovirus/Enterovirus PCR Not Detected (NotDetected)
[2023-10-28] MEDS: PLASMA-LYTE A 500 ML IV ONE (16:10)
[2023-10-28] MEDS: MAGNESIUM SULFATE / D5W 1 GM/100 ML BAG IV ONE (16:55)
[2023-10-28] MEDS ORDERED: ACETAMINOPHEN 325 MG TAB PO PRN (17:18)
[2023-10-28] MEDS ORDERED: ACETAMINOPHEN 500 MG TAB PO PRN (17:18)
[2023-10-28] MEDS ORDERED: POLYETHYLENE (MIRALAX) 17 GM PACK PO PRN (17:18)
[2023-10-28] MEDS ORDERED: METOPROLOL TARTRATE 1 MG/ML VIAL IV PRN (17:18)
--- NOTE | 2023-10-28 17:53 | Emergency Department Note ---
History of Present Illness General Chief Complaint: Shortness of Breath/Dyspnea Time Seen by Provider: 10/28/23 12:18 History of Present Illness Provider Complaint: shortness of breath and cough Onset (ago): week(s) (1) Severity: moderate Consistency/Duration: + progressively worsening Relieved By: + nothing Exacerbated By: + exertion and + coughing Context: + recent illness Associated symptoms: + sputum production and + chest congestion; no wheezing, no hemoptysis or no nausea/vomiting Related Data Home oxygen amount: none Home Medications Medication Instructions Recorded Confirmed Type acetaminophen 500 mg tablet 1,000 mg PO UD PRN Pain 02/12/19 10/28/23 History ascorbic acid (vitamin C) 1,000 mg 1,000 mg PO BID 02/12/19 10/28/23 History tablet cholecalciferol (vitamin D3) 25 1,000 units PO BID 02/12/19 10/28/23 History mcg (1,000 unit) tablet (Vitamin D3) multivitamin 1 tab PO QAM 06/09/19 10/28/23 History magnesium 250 mg tablet 250 mg PO QAM 06/29/19 10/28/23 History calcium carbonate 500 mg calcium 500 mg PO BID 09/05/20 10/28/23 History (1,250 mg) tablet diclofenac sodium 1 % topical gel 2 g topical QID PRN Pain 05/01/22 10/28/23 History metoprolol succinate 50 mg 50 mg PO QPM #90 tabs 09/17/22 10/28/23 Rx tablet,extended release 24 hr atorvastatin 20 mg tablet 20 mg PO QPM #90 tabs 10/17/22 10/28/23 Rx potassium chloride 20 mEq 20 meq PO QAM #90 tabs 01/03/23 10/28/23 Rx tablet,extended release(part/cryst) (Klor-Con M) amiodarone 100 mg tablet 100 mg PO DAILY #90 tabs 01/25/23 10/28/23 Rx omeprazole 20 mg capsule,delayed 20 mg PO Q OTHER DAY #90 caps 01/25/23 10/28/23 Rx release diltiazem HCl 240 mg 240 mg PO DAILY #90 caps 04/08/23 10/28/23 Rx capsule,extended release 24 hr apixaban 5 mg tablet (Eliquis) 5 mg PO BID #180 tabs 08/08/23 10/28/23 Rx furosemide 20 mg tablet (Lasix) 20 mg PO .COMPLEX #120 tabs 08/08/23 10/28/23 Rx losartan 25 mg tablet 25 mg PO DAILY #90 tabs 08/08/23 10/28/23 Rx Allergies Allergy/AdvReac Type Severity Reaction Status Date / Time meloxicam Allergy Intermediate RASH Verified 10/28/23 15:25 Past Med/Surg History Medical History Dermatitis Arthritis Acute diastolic CHF (congestive heart failure) (2019) Obesity Vaginal prolapse Orthostatic hypotension GERD without esophagitis Diverticulosis of colon Crystalluria Diverticulitis hx Surgical History History of tubal ligation History of colonoscopy History of tooth extraction S/P total knee arthroplasty RIGHT Family History Mother Family history of diabetes mellitus Denies family history of Ovarian cancer Prostate cancer Myocardial infarction Breast cancer Colorectal cancer Social History Smoking Status: Never smoker Second Hand Exposure: Yes ([employer]/PLACE OF WORK); Do You Dip or Chew Tobacco: No; Hx Alcohol Use: No Hx Substance Use: No Preferred Language: Greek Communication Ability: Effective Visual Impairment: Limited Hearing Ability: Hard of Hearing Maintenance Representative Required: No Beliefs That Will Affect Care: None marital status: Current Living Situation: Spouse current occupational status: retired How many Children do You have: 2 Feels Safe at Home: Yes Childhood Exposure to Second-Hand Smoke: No Diet: regular caffeine: Yes during the past year weight has: remained stable Dental Care, Regularly: No Physical Activity Frequency: Does not Exercise Seatbelt Use: always Sunscreen Use: Yes Assistive Devices: Denture - Upper, Denture - Lower and Glasses Physical Exam 2 Vital Signs: Vital Signs - 24 hr 10/28/23 11:51 10/28/23 11:51 10/28/23 12:13 Temperature 36.5 C Temperature Source Oral Pulse Rate 120 H 107 H Pulse Rate from Sp O2 Sensor 120 H Respiratory Rate 34 H 24 Respiratory Effort / Characteristics Short of Breath Short of Breath Blood Pressure 120/95 Blood Pressure Caroline n 103 Pulse Oximetry 94 82 L Oxygen Delivery Me thod Room Air Oxygen Flow Rate Sepsis Recent Feve r Within 48 Hours No Sepsis New/Unexpla ined Change in Men berta Status No Sepsis Action Take n by Nursing No Action Required 10/28/23 12:20 10/28/23 12:24 10/28/23 12:25 Temperature Temperature Source Pulse Rate 110 H 112 H Pulse Rate from Sp O2 Sensor 104 H Respiratory Rate 19 Respiratory Effort / Characteristics Blood Pressure Blood Pressure Caroline n Pulse Oximetry 93 Oxygen Delivery Me thod Nasal Cannula Oxygen Flow Rate 2 Sepsis Recent Feve r Within 48 Hours Sepsis New/Unexpla ined Change in Men berta Status Sepsis Action Take n by Nursing 10/28/23 12:30 10/28/23 12:40 10/28/23 12:50 Temperature Temperature Source Pulse Rate 130 H 108 H 107 H Pulse Rate from Sp O2 Sensor 116 H 101 H 106 H Respiratory Rate 22 24 15 Respiratory Effort / Characteristics Blood Pressure Blood Pressure Caroline n Pulse Oximetry 85 L 87 L 92 Oxygen Delivery Me thod Oxygen Flow Rate Sepsis Recent Feve r Within 48 Hours Sepsis New/Unexpla ined Change in Men berta Status Sepsis Action Take n by Nursing 10/28/23 12:52 10/28/23 12:52 10/28/23 13:00 Temperature Temperature Source Pulse Rate 106 H Pulse Rate from Sp O2 Sensor 105 H Respiratory Rate 18 Respiratory Effort / Characteristics Blood Pressure Blood Pressure Caroline n Pulse Oximetry 87 L 91 90 Oxygen Delivery Me thod Nasal Cannula Nasal Cannula Oxygen Flow Rate 2 6 Sepsis Recent Feve r Within 48 Hours Sepsis New/Unexpla ined Change in Men berta Status Sepsis Action Take n by Nursing 10/28/23 13:23 10/28/23 13:30 10/28/23 13:40 Temperature Temperature Source Pulse Rate 104 H 106 H Pulse Rate from Sp O2 Sensor 101 H 106 H Respiratory Rate 29 H 27 H 25 H Respiratory Effort / Characteristics Blood Pressure Blood Pressure Caroline n Pulse Oximetry 93 92 Oxygen Delivery Me thod Oxygen Flow Rate Sepsis Recent Feve r Within 48 Hours Sepsis New/Unexpla ined Change in Men berta Status Sepsis Action Take n by Nursing 10/28/23 13:50 10/28/23 14:00 Temperature Temperature Source Pulse Rate 107 H 115 H Pulse Rate from Sp O2 Sensor 110 H 110 H Respiratory Rate 31 H 27 H Respiratory Effort / Characteristics Blood Pressure Blood Pressure Caroline n Pulse Oximetry 93 92 Oxygen Delivery Me thod Oxygen Flow Rate 6 Sepsis Recent Feve r Within 48 Hours Sepsis New/Unexpla ined Change in Men berta Status Sepsis Action Take n by Nursing Physical Exam: Physical Exam GENERAL: oriented to person, place, and time. appears well-developed and well- nourished. HENT: Exam performed. - Head: Normocephalic and atraumatic. EYES: Conjunctivae and EOM are normal. Right eye exhibits no discharge. Left eye exhibits no discharge. No scleral icterus. NECK: Normal range of motion. Neck supple. No JVD present. CV: Normal rate, irregular rhythm, normal heart sounds and intact distal pulses. Palpable radial pulses bue. PULM/CHEST: Inspiratory rales at the bases more on the right than the left. ABD: The abdomen is soft. There is no tenderness. NEURO: Motor and sensation grossly intact. SKIN: Skin is warm and dry. He is not diaphoretic. PSYCH: normal mood and affect. Behavior is normal. Judgment and thought content normal. Course Course 1218: The patient was evaluated in room B6. A complete history and physical exam was performed Cardiac monitoring: An order was placed for continuous cardiac monitoring. The monitor shows a rate of 100 with atrial fibriation rhythm interpreted by me 1230: Called to bedside by nursing, patient became hypoxic on room air. Supplemental oxygen applied. 1445: Vital signs stable on supplemental oxygen. Patient does have a right- sided pneumonia. Labs show leukocytosis of 12.76 VBG shows a venous pH of 7.35 venous pCO2 of 39. Creatinine 2.15 elevated from baseline. High-sensitivity troponin 15.4 BNP 338. Patient will be admitted to the [facility] team. IV Rocephin and azithromycin ordered for the patient. Administered Medications Discontinued Medications Azithromycin (Azithromycin 250 Mg Tab) 500 mg PO NOW ONE Stop: 10/28/23 14:46 Last Admin: 10/28/23 15:04 Dose: 500 mg Documented By: MASSIMO Ceftriaxone Sodium (Rocephin) 2,000 mg in 50 mls @ 100 mls/hr IV NOW STA Stop: 10/28/23 15:14 Last Infusion: 10/28/23 16:10 Dose: Infused Documented By: Admin: 10/28/23 15:04 Dose: 100 mls/hr Documented By: MASSIMO Parenteral Electrolytes (Plasma-Lyte A Ph 7.4) 500 mls @ 999 mls/hr IV .Q31M ONE Stop: 10/28/23 15:39 Last Infusion: 10/28/23 16:55 Dose: Infused Documented By: Admin: 10/28/23 16:10 Dose: 999 mls/hr Documented By: MASSIMO Magnesium Sulfate/Dextrose (Magnesium Sulfate / D5w) 1 gm in 100 mls @ 50 mls/hr IV ONE ONE Stop: 10/28/23 17:39 Last Admin: 10/28/23 16:55 Dose: 50 mls/hr Documented By: MASSIMO Medical Decision Making Laboratory Data Attestation: I reviewed the patient's lab results. 10/28/23 12:13 10/28/23 12:13 Lab Results 10/28/23 10/28/23 10/28/23 Range/Units 12:13 12:44 12:46 WBC 12.76 H (4.8-10.8) K/ul RBC 4.52 (4.20-5.40) M/uL Hgb 12.9 (12.0-16.0) g/dl Hct 40.1 (37.0-47.0) % MCV 88.7 (80.0-100.0) fL MCH 28.5 (25.0-34.0) pg MCHC 32.2 (32.0-36.0) g/dL RDW Std Deviation 49.4 H (36.4-46.3) fL RDW Coeff of Winsome 15.3 H (11.5-14.5) % Plt Count 220 (130-400) K/uL MPV 10.8 (9.4-12.4) fL Immature Gran % (Auto) 0.4 % Neut % (Auto) 85.4 % Lymph % (Auto) 10.9 % Ferry % (Auto) 2.7 % Eos % (Auto) 0.3 % Baso % (Auto) 0.3 % Neut # (Auto) 10.89 H (1.40-6.50) K/uL Lymph # (Auto) 1.39 (1.20-3.40) K/uL Ferry # (Auto) 0.35 (0.11-0.59) K/uL Eos # (Auto) 0.04 (0.00-0.50) K/uL Baso # (Auto) 0.04 (0.00-0.20) K/uL Immature Gran # (Auto) 0.05 (0.01-0.20) K/uL Echinocytes 1+ VBG pH 7.35 L (7.36-7.41) VBG pCO2 39 (38-50) mmHg VBG pO2 21 mmHg VBG HCO3 22 mmol/L VBG O2 Saturation < 60.0 % VBG Base Excess -3.8 mEq/L Sodium 136 (136-145) mmol/L Potassium 4.4 (3.5-5.1) mmol/L Chloride 104 (98-107) mmol/L Carbon Dioxide 21 (21-32) mmol/L Anion Gap 11 (3-11) BUN 25 H (6-23) mg/dl Creatinine 2.15 H (0.6-1.2) mg/dl Est Cr Clr Drug Dosing 36.1 ml/min Est GFR ( Amer) 26.6 ml/min Est GFR (Non-Af Amer) 22.9 ml/min BUN/Creatinine Ratio 11.6 (10-20) Glucose 132 H (70-99(Fasting)) mg/dl Calcium 9.4 (8.6-10.3) mg/dl Magnesium 1.7 (1.7-2.4) mg/dl Troponin I High Sens 15.4 H (0-14) pg/ml B-Natriuretic Peptide 338 H (0-100) pg/ml Lipase 5 L (11-82) U/L Adenovirus (PCR) (NotDetected) B. pertussis DNA (PCR) (NotDetected) B.parapertussis DNA PCR (NotDetected) C. pneumoniae DNA (PCR) (NotDetected) Coronavirus OC43 (PCR) (NotDetected) Coronavirus HKU1 (PCR) (NotDetected) Coronavirus 229E (PCR) (NotDetected) SARS-CoV-2 (PCR) (NotDetected) Coronavirus NL63 (PCR) (NotDetected) Human Metapneumovir PCR (NotDetected) Influenza Type A (PCR) (NotDetected) Influenza Type B (PCR) (NotDetected) M. pneumoniae (PCR) (NotDetected) Parainfluenza 1 (PCR) (NotDetected) Parainfluenza 2 (PCR) (NotDetected) Parainfluenza 3 (PCR) (NotDetected) Parainfluenza 4 (PCR) (NotDetected) RSV (PCR) (NotDetected) Entero/Rhino (PCR) (NotDetected) SARS-CoV-2, RNA, NAAT NEGATIVE (NEGATIVE) 10/28/23 Range/Units 14:45 WBC (4.8-10.8) K/ul RBC (4.20-5.40) M/uL Hgb (12.0-16.0) g/dl Hct (37.0-47.0) % MCV (80.0-100.0) fL MCH (25.0-34.0) pg MCHC (32.0-36.0) g/dL RDW Std Deviation (36.4-46.3) fL RDW Coeff of Winsome (11.5-14.5) % Plt Count (130-400) K/uL MPV (9.4-12.4) fL Immature Gran % (Auto) % Neut % (Auto) % Lymph % (Auto) % Ferry % (Auto) % Eos % (Auto) % Baso % (Auto) % Neut # (Auto) (1.40-6.50) K/uL Lymph # (Auto) (1.20-3.40) K/uL Ferry # (Auto) (0.11-0.59) K/uL Eos # (Auto) (0.00-0.50) K/uL Baso # (Auto) (0.00-0.20) K/uL Immature Gran # (Auto) (0.01-0.20) K/uL Echinocytes VBG pH (7.36-7.41) VBG pCO2 (38-50) mmHg VBG pO2 mmHg VBG HCO3 mmol/L VBG O2 Saturation % VBG Base Excess mEq/L Sodium (136-145) mmol/L Potassium (3.5-5.1) mmol/L Chloride (98-107) mmol/L Carbon Dioxide (21-32) mmol/L Anion Gap (3-11) BUN (6-23) mg/dl Creatinine (0.6-1.2) mg/dl Est Cr Clr Drug Dosing ml/min Est GFR ( Amer) ml/min Est GFR (Non-Af Amer) ml/min BUN/Creatinine Ratio (10-20) Glucose (70-99(Fasting)) mg/dl Calcium (8.6-10.3) mg/dl Magnesium (1.7-2.4) mg/dl Troponin I High Sens (0-14) pg/ml B-Natriuretic Peptide (0-100) pg/ml Lipase (11-82) U/L Adenovirus (PCR) Not Detected (NotDetected) B. pertussis DNA (PCR) Not Detected (NotDetected) B.parapertussis DNA PCR Not Detected (NotDetected) C. pneumoniae DNA (PCR) Not Detected (NotDetected) Coronavirus OC43 (PCR) DETECTED A (NotDetected) Coronavirus HKU1 (PCR) Not Detected (NotDetected) Coronavirus 229E (PCR) Not Detected (NotDetected) SARS-CoV-2 (PCR) Not Detected (NotDetected) Coronavirus NL63 (PCR) Not Detected (NotDetected) Human Metapneumovir PCR Not Detected (NotDetected) Influenza Type A (PCR) Not Detected (NotDetected) Influenza Type B (PCR) Not Detected (NotDetected) M. pneumoniae (PCR) Not Detected (NotDetected) Parainfluenza 1 (PCR) Not Detected (NotDetected) Parainfluenza 2 (PCR) Not Detected (NotDetected) Parainfluenza 3 (PCR) Not Detected (NotDetected) Parainfluenza 4 (PCR) Not Detected (NotDetected) RSV (PCR) Not Detected (NotDetected) Entero/Rhino (PCR) Not Detected (NotDetected) SARS-CoV-2, RNA, NAAT (NEGATIVE) Imaging Data Attestation: I personally reviewed and interpreted this imaging study as follows: My Impression: Chest x-ray: Right lower lobe infiltrate Radiologist's Impression: Chest X-Ray 10/28/23 12:38 XR chest 2V PA/lateral CLINICAL HISTORY: Chest pain, nonspecific COMPARISON STUDY: Chest radiograph August 06, 2023. FINDINGS: Lung volumes are normal. Right mid and lower lung airspace opacity has developed since chest radiograph of August 06, 2023. Probable trace right pleural effusion. There is no pneumothorax. Linear left basilar densities favor atelectasis. Cardiomegaly is unchanged. There is no evidence for pulmonary edema. IMPRESSION: 1. Interval development of right mid and lower lung airspace opacity suggestive of pneumonia. Post treatment radiographs to ensure resolution is recommended. 2. Suspected trace right pleural effusion. 3. Cardiomegaly without evidence for pulmonary edema. ACT 112: Negative or not required by law. Electronically signed by: Broderick Serna M.D. 10/28/2023 1:38 PM ECG Data Attestation: I personally reviewed and interpreted this ECG as follows: Interpretation: Atrial fibrillation with rate of 109. QRS and QTc intervals within normal limits. No ST elevation or ST depression. [facility] Narrative 1218: The patient was evaluated in room B6. A complete history and physical exam was performed Cardiac monitoring: An order was placed for continuous cardiac monitoring. The monitor shows a rate of 100 with atrial fibriation rhythm interpreted by me 1230: Called to bedside by nursing, patient became hypoxic on room air. Supplemental oxygen applied. 1445: Vital signs stable on supplemental oxygen. Patient does have a right- sided pneumonia. Labs show leukocytosis of 12.76 VBG shows a venous pH of 7.35 venous pCO2 of 39. Creatinine 2.15 elevated from baseline. High-sensitivity troponin 15.4 BNP 338. Patient will be admitted to the [facility] team. IV Rocephin and azithromycin ordered for the patient. Impression & Plan Hypoxia, Pneumonia Critical Care Time Critical Care Time: Yes Total Critical Care Time: 57 I have personally spent greater than 57 minutes of critical care time in the direct management of this patient. This includes bedside care, interpretation of diagnostic studies, and testing, discussion with consultants, patient, and family members, and other required patient management activities. This 57 minutes is in excess of all separately billable procedures. Discharge Plan Visit Data Chief Complaint: Shortness of Breath/Dyspnea ED Provider: Thomas Molina Discharge Problem: Hypoxia, Pneumonia Patient Disposition: Admitted As Inpatient Discharge Instructions Interventions: ED Discharge Assessment Last Done: 10/28/23 17:19 Discharge Problem: Pneumonia Qualifiers: Pneumonia type: due to unspecified organism Laterality: right Lung location: l ower lobe of lung Qualified Code(s): J18.9 - Pneumonia, unspecified organism
[2023-10-28] MEDS: PLASMA-LYTE A 1,000 ML IV SCH (19:36)
--- NOTE | 2023-10-28 20:06 | Billing Data ---
Date of Service October 28, 2023 Coding Level of Care Code 01765 CRITICAL CARE 1ST 30-74M Additional Critical Care Time 35 minutes of additional critical care time including sepsis treatment, evaluation, imaging , labs and result review.
--- NOTE | 2023-10-28 21:05 | CT Scan Report ---
Exam(s): CT CHEST Without Contrast EXAM: CT Chest Without Intravenous Contrast CLINICAL HISTORY: Reason for exam: AHRF, PNA, CHF. TECHNIQUE: Axial computed tomography images of the chest without intravenous contrast. Automated exposure control was utilized for the study. A dose lowering technique was utilized adhering to the principles of ALARA. COMPARISON: No relevant prior studies available. FINDINGS: Lungs: Airspace consolidation in the RIGHT upper lobe and RIGHT lung base, consistent with multilobar pneumonia. No mass. Pleural space: Unremarkable. No pneumothorax. No significant effusion. Heart: Cardiomegaly. No significant pericardial effusion. No significant coronary artery calcifications. Mediastinum: Moderate hiatal hernia. Bones/joints: Degenerative changes of the spine. No acute fracture. No dislocation. Soft tissues: Unremarkable. Vasculature: Atherosclerotic changes of the aorta. No thoracic aortic aneurysm. Lymph nodes: Unremarkable. No enlarged lymph nodes. IMPRESSION: 1. Airspace consolidation in the RIGHT upper lobe and RIGHT lung base, consistent with multilobar pneumonia. 2. Moderate hiatal hernia. Electronically signed by: Jasen Looney MD 10/28/23 21:04 PM
[2023-10-28] MEDS: METOPROLOL SUCC 50MG EXT REL TAB PO SCH (21:21)
[2023-10-28] MEDS: ATORVASTATIN 20 MG TAB PO SCH (21:26)
[2023-10-28] MEDS: CHOLECALCIFEROL 25 MCG (1000 UNITS) TAB PO SCH (21:27)
[2023-10-28] MEDS: MAGNESIUM OXIDE 400 MG TAB PO SCH (21:27)
[2023-10-28] MEDS: APIXABAN 5 MG TABLET PO SCH (21:27)
[2023-10-28] MEDS: CALCIUM CARBONATE 1250MG TAB PO SCH (21:28)
[2023-10-28] MEDS ORDERED: VANCOMYCIN CONSULT ACTIVE PRN (22:10)
[2023-10-28] MEDS: VANCOMYCIN HCL 2,500 MG in SODIUM CHLORIDE 0.9% 500 ML IV ONE (23:38)
[2023-10-29] MEDS: PLASMA-LYTE A 1,000 ML IV ONE (00:32)
[2023-10-29] MEDS: PLASMA-LYTE A 250 ML IV ONE (02:40)
--- NOTE | 2023-10-29 04:24 | Communication Note ---
Date of Service: October 29, 2023 Called to bedside by nursing as wheezing was noted on examination. Patient denies increasing dyspnea. O2 89-92% on 5L NC. Lungs coarse throughout, most notable in RLL. Expiratory wheezing in right lung. Patient's heart rate largely downtrending, now in high 90s. Ongoing productive cough, sputum culture obtained. No acute change in LE edema. Continue to hold off on additional fluid resuscitation. Ordered 1x DuoNeb for symptomatic relief of wheezing. Continue to monitor HR given addition of DuoNeb. No benefit w/ DuoNeb, increasing oxygen requirement to 10L nasal canula. STAT CXR ordered, repeat appearing postobstructive. Patient placed on HFNC w/ improvement in O2 saturations to 94%. Antibiotics broadened to Cefepime and Vancomycin. Pulmonary consultation placed in the event that RLL clearance with bronchoscopy is indicated. Resident Activity Tracking Resident Involvement: Resident Care Provided Care Provided: Adult [facility] (Night)
[2023-10-29] MEDS: ALBUT/IPRATROP 3MG/0.5MG NEB 3 ML VIAL NEB STA (04:32)
[2023-10-29] MEDS ORDERED: VANCOMYCIN CONSULT ACTIVE PRN (06:19)
[2023-10-29] MEDS ORDERED: VANCOMYCIN HCL 1,500 MG in SODIUM CHLORIDE 0.9% 250 ML IV SCH (06:30)
[2023-10-29] MEDS: CEFEPIME 2,000 MG in SYRINGE 0 ML IV SCH (06:40)
--- NOTE | 2023-10-29 07:25 | XRay Report ---
XR chest 1V portable CLINICAL HISTORY: increasing O2 requirement TECHNIQUE: Single frontal radiograph of the chest was obtained. Comparison: Comparison is made to chest radiograph 10/28/[address] chest 10/28/2023 FINDINGS: No lines and tubes are seen. Cardiomegaly is noted. The aortic arch is calcified. Right airspace opac ity is seen. No evidence of pleural effusion or pneumothorax. IMPRESSION: Right airspace opacity is seen compatible with pneumonia. ACT 112: Negative or not required by law. Electronically signed by: Michael Alexandre M.D. 10/29/2023 7:24 AM
[2023-10-29 08:30] LABS: Basophils # (auto) 0.04 K/uL (0.00-0.20); Basophils % (auto) 0.3 %; Dohle Bodies 1+; Echinocytes 1+; Hematocrit (blood only) 36.4 % (37.0-47.0); Hemoglobin 11.7 g/dl (12.0-16.0); Immature Granulocytes # (auto) 0.13 K/uL (0.01-0.20); Lymphocytes # (auto) 0.67 K/uL (1.20-3.40); Mean Corpuscular Hemoglobin 28.2 pg (25.0-34.0); Mean Corpuscular Hgb Conc 32.1 g/dL (32.0-36.0); Mean Corpuscular Volume 87.7 fL (80.0-100.0); Mean Platelet Volume 10.3 fL (9.4-12.4); Monocytes # (auto) 0.19 K/uL (0.11-0.59); Monocytes % (auto) 1.4 %; Neutrophils # (auto) 12.36 K/uL (1.40-6.50); Neutrophils % (auto) 92.3 %; Platelet Count 187 K/uL (130-400); Polychromasia 1+; RDW Coefficient of Variation 15.6 % (11.5-14.5); RDW Standard Deviation 49.8 fL (36.4-46.3); Red Blood Count 4.15 M/uL (4.20-5.40); Toxic Vacuolation 1+; White Blood Count 13.39 K/ul (4.8-10.8)
[2023-10-29] MEDS ORDERED: APIXABAN 5 MG TABLET PO SCH (09:00)
[2023-10-29] MEDS ORDERED: AZITHROMYCIN 250 MG TAB PO SCH (09:00)
[2023-10-29] MEDS ORDERED: PANTOprazole 40 MG TAB PO SCH (09:00)
[2023-10-29 09:09] LABS: BUN Creatinine Ratio 15.6 (10-20); Creatinine Clr Calc Pharmacy 50.4 ml/min; Est GFR (African American) 39.8 ml/min; Est GFR (Non-African American) 34.3 ml/min
[2023-10-29] MEDS: levoFLOXacin/D5W 750 MG/150 ML BAG IV SCH (09:29)
[2023-10-29] MEDS: PANTOprazole 40 MG TAB PO SCH (09:31)
[2023-10-29] MEDS: dilTIAZem HCL 240 MG CAPCR PO SCH (09:34)
[2023-10-29] MEDS: AMIODARONE 200 MG TAB PO SCH (09:41)
[2023-10-29] MEDS: POTASSIUM CHLORIDE CRTAB 20 MEQ TABCR PO SCH (09:42)
--- NOTE | 2023-10-29 10:43 | Pulmonary Consultation ---
Date of Consultation October 29, 2023 Assessment & Plan (1) Multifocal pneumonia: (2) Viral infection: (3) Hypoxia: Plan 68-year-old female with a history of hypertension, CKD stage III, dyslipidemia and hiatal hernia who presented to the hospital with multifocal pneumonia. She was found to have coronavirus on respiratory viral panel. I suspect she has a superimposed bacterial infection. There is no role for double antipseudomonal coverage at this time. Will discontinue cefepime and continue with Levaquin. Obtain urine Legionella antigen. I would recommend treating for 10 to 14 days. Continue to wean supplemental oxygen as able. I recommend proning to help with VQ mismatch and secretion management. Recommend incentive spirometry and flutter valve to promote mucociliary clearance and lung recruitment. Discussed with bedside nursing and RT. Pulmonary will continue to follow. Thank you for the consult History of Present Illness Reason for Consultation: Community-acquired pneumonia Attending Physician: Jordon Barton MD History of Present Illness 68-year-old female with a past medical history of GERD, CKD stage III, hypertension A-fib who presented to the hospital due to shortness of breath over the past 3 to 4 days. She has also been having cough occasionally productive sputum. She was seen in her PCP office and found to be hypotensive and was transferred to the ER by ambulance. She denies any recent travel. She denies any overt sick contacts. She does not have home oxygen. She denies any prior history of lung disease. She is a non-smoker. She was admitted to the hospital and started on Rocephin and azithromycin. Nasal MRSA swab was negative. CT chest from last night revealed airspace consolidation right upper lobe at the right lower lobe consistent with multilobar pneumonia. Moderate hiatal hernia was seen. Chest x-ray from today revealed right airspace opacity consistent with pneumonia. Labs with leukocytosis. Viral panel revealed coronavirus, [id number]. Today her antibiotics were escalated to levofloxacin and cefepime. Allergies Allergy/AdvReac Type Severity Reaction Status Date / Time meloxicam Allergy Intermediate RASH Verified 10/28/23 15:25 Home Medications Medication Instructions Recorded Confirmed Type acetaminophen 500 mg tablet 1,000 mg PO UD PRN Pain 02/12/19 10/28/23 History ascorbic acid (vitamin C) 1,000 mg 1,000 mg PO BID 02/12/19 10/28/23 History tablet cholecalciferol (vitamin D3) 25 1,000 units PO BID 02/12/19 10/28/23 History mcg (1,000 unit) tablet (Vitamin D3) multivitamin 1 tab PO QAM 06/09/19 10/28/23 History magnesium 250 mg tablet 250 mg PO QAM 06/29/19 10/28/23 History calcium carbonate 500 mg calcium 500 mg PO BID 09/05/20 10/28/23 History (1,250 mg) tablet diclofenac sodium 1 % topical gel 2 g topical QID PRN Pain 05/01/22 10/28/23 History metoprolol succinate 50 mg 50 mg PO QPM #90 tabs 09/17/22 10/28/23 Rx tablet,extended release 24 hr atorvastatin 20 mg tablet 20 mg PO QPM #90 tabs 10/17/22 10/28/23 Rx potassium chloride 20 mEq 20 meq PO QAM #90 tabs 01/03/23 10/28/23 Rx tablet,extended release(part/cryst) (Klor-Con M) amiodarone 100 mg tablet 100 mg PO DAILY #90 tabs 01/25/23 10/28/23 Rx omeprazole 20 mg capsule,delayed 20 mg PO Q OTHER DAY #90 caps 01/25/23 10/28/23 Rx release diltiazem HCl 240 mg 240 mg PO DAILY #90 caps 04/08/23 10/28/23 Rx capsule,extended release 24 hr apixaban 5 mg tablet (Eliquis) 5 mg PO BID #180 tabs 08/08/23 10/28/23 Rx furosemide 20 mg tablet (Lasix) 20 mg PO .COMPLEX #120 tabs 08/08/23 10/28/23 Rx losartan 25 mg tablet 25 mg PO DAILY #90 tabs 08/08/23 10/28/23 Rx Patient History Medical History (Updated 10/29/23 @ 10:41 by Joe Polk MD) Viral infection Multifocal pneumonia Dermatitis Arthritis Acute diastolic CHF (congestive heart failure) (2019) Obesity Vaginal prolapse Orthostatic hypotension GERD without esophagitis Diverticulosis of colon Crystalluria Diverticulitis hx Surgical History History of tubal ligation History of colonoscopy History of tooth extraction S/P total knee arthroplasty RIGHT Family History Mother Family history of diabetes mellitus Denies family history of Ovarian cancer Prostate cancer Myocardial infarction Breast cancer Colorectal cancer Social History Smoking Status: Never smoker Second Hand Exposure: Yes ([employer]/PLACE OF WORK); Do You Dip or Chew Tobacco: No; Hx Alcohol Use: No Hx Substance Use: No Preferred Language: Marshallese Communication Ability: Effective Visual Impairment: Limited Hearing Ability: Hard of Hearing Shelter Advocate Required: No Beliefs That Will Affect Care: None marital status: Current Living Situation: Spouse current occupational status: retired How many Children do You have: 2 Feels Safe at Home: Yes Childhood Exposure to Second-Hand Smoke: No Diet: regular caffeine: Yes during the past year weight has: remained stable Dental Care, Regularly: No Physical Activity Frequency: Does not Exercise Seatbelt Use: always Sunscreen Use: Yes Assistive Devices: Denture - Upper, Denture - Lower and Glasses Review of Systems Review of Systems: All systems reviewed & are unremarkable except as noted in HPI & below Physical Exam Physical Exam: Constitutional: Patient appears to be of their stated age. Patient is in no apparent distress. Patient is well-developed. Eyes: Pupils are equal round and reactive to light. Conjunctivae are normal. Anicteric sclera. Ears nose, mouth and throat: Mallampati class 2. Normal posterior oropharynx. Uvula is midline. Neck: Trachea is midline. Visual inspection is normal. Respiratory: Mild tachypnea. High flow nasal cannula noted on the nose. Rhonchi noted in the right lower lobe. Cardiovascular: Regular rate and rhythm. No murmurs. No edema. Gastrointestinal: Normal bowel sounds, soft, nontender and nondistended. No hepatosplenomegaly noted. Musculoskeletal: No cyanosis. Patient is able to move all extremities. Strength is 5 out of 5 in the upper and lower extremities. Skin: No rashes, warm dry and intact. Neurologic: No obvious focal neurological deficits seen. Psychiatric: Alert and oriented x3 with a euthymic affect. Results & Data Results & Data Vital Signs (Past 12 Hours) Vital Signs Temp Pulse Pulse Resp BP Pulse Ox O2 Del Method 10/29/23 08:30 125 H 12 96 High Flow Nasal Cannula 10/29/23 07:55 36.9 C 117 H 27 H 96/68 L 94 High Flow Nasal Cannula 10/29/23 07:13 128 H 24 91 High Flow Nasal Cannula 10/29/23 06:05 111 H 20 93 High Flow Nasal Cannula 10/29/23 05:11 86 L Oxymask 10/29/23 04:56 89 L Nasal Cannula 10/29/23 04:33 98 H 20 91 Nasal Cannula 10/29/23 03:52 37.2 C 97 H 20 103/76 90 Nasal Cannula 10/29/23 02:00 89 L Nasal Cannula 10/28/23 23:45 Nasal Cannula 10/28/23 23:30 93 H 10/28/23 23:00 36.9 C 105 H 18 105/79 93 Nasal Cannula O2 Flow Rate FiO2 10/29/23 08:30 30 65 10/29/23 07:55 30 10/29/23 07:13 30 80 10/29/23 06:05 30 80 10/29/23 05:11 6 10/29/23 04:56 6 10/29/23 04:33 6 10/29/23 03:52 5 10/29/23 02:00 4 10/28/23 23:45 4 10/28/23 23:30 10/28/23 23:00 4 PG Care Time/CCT Total # of Minutes Spent Total Time Spent with Patient: Total time spent is greater than 50% in coordination of care (as documented) at patient's floor/unit and/or counseling patient: Coding Level of Care Code 62259 INT INP/OBS CARE 375MIN Diagnoses Multifocal pneumonia J18.9 Viral infection B34.9 Hypoxia R09.02
[2023-10-29] MEDS: APIXABAN 5 MG TABLET PO SCH (13:03)
[2023-10-29] MEDS ORDERED: cefTRIAXone SODIUM 2,000 MG in DEXTROSE 5 % MINI-B 50 ML IV SCH (15:00)
--- NOTE | 2023-10-29 15:06 | Hospitalist Progress Note ---
Date of Service October 29, 2023 Assessment & Plan (1) Community acquired bacterial pneumonia: Plan: Right upper and right lower lobes. Pulmonary medicine consultation appreciated. She is now on Levaquin. Multiple studies and sputum culture results pending. Serial chest x-ray (2) Acute respiratory failure with hypoxia: Plan: Supplemental oxygen to maintain saturation greater than 90%. Currently requiring high flow oxygen. Wean off as tolerated (3) Mild CAD: Plan: Stable. Continue current medical management. (4) Afib: Plan: Chronic atrial fibrillation on Eliquis therapy. Mildly tachycardic due to pneumonia and hypoxia. Telemetry. Continue amiodarone and apixaban. (5) Chronic Kidney Disease: Plan: Acute on chronic kidney disease, stage III. Monitor intake and output. Serial labs (6) HTN (hypertension): Plan: Stable. Continue diltiazem, metoprolol. Losartan temporarily on hold. Plan Anticipate eventual discharge to home later this week Admission and Anticipated Discharge Date Admission Date: October 28, 2023 Subjective Fortunately she is alert and oriented in no distress despite the need for high flow oxygen. Pulmonary medicine consultation appreciated. Antibiotics have been switched to Levaquin. Nasal MRSA swab is negative. Eliquis has been restarted. Creatinine improved to 1.5. Review of Systems 2 Review of Systems: Constitutional-no fever or chills ENT-no blurred vision, no double vision, no epistaxis, no sore throat Respiratory-nonproductive cough. Shortness of breath with minimal exertion. No hemoptysis. Cardiac-no palpitations, no chest pain, no syncope GI-no nausea, vomiting, diarrhea, melena, hematochezia -no urinary retention, no urinary incontinence, no dysuria, no hematuria Musculoskeletal-no joint pain, no muscle tenderness Skin-no bruising, no rashes, no pruritus Neuro-no isolated weakness, no paresthesia Psych-no depression, no anxiety Physical Exam 2 Physical Exam: General-alert and oriented x3, no fever, no chills HEENT-head atraumatic and normocephalic, pupils equal and reactive to light, extraocular muscles intact Neck-no lymphadenopathy or thyromegaly, trachea midline Chest-rhonchi at the right base. No wheezing. No appreciable dullness Cardiac-irregular rhythm consistent with atrial fibrillation. Controlled rate. Normal S1 and S2 Abdomen-normal bowel sounds, nontender, no hepatosplenomegaly Extremities-no cyanosis, clubbing, or edema Neuro-cranial nerves II through XII intact, motor and sensory function within normal limits, strength symmetrical, no focal deficits Psych-normal affect, normal mood Results & Data Results & Data Vital Signs (Past 12 Hours) Vital Signs Temp Pulse Pulse Resp BP Pulse Ox O2 Del Method 10/29/23 14:41 36.8 C 75 18 126/62 98 Nasal Cannula 10/29/23 11:10 36.5 C 118 H 19 101/69 97 High Flow Nasal Cannula 10/29/23 08:30 125 H 12 96 High Flow Nasal Cannula 10/29/23 08:21 113 H 10/29/23 07:55 36.9 C 117 H 27 H 96/68 L 94 High Flow Nasal Cannula 10/29/23 07:40 High Flow Nasal Cannula 10/29/23 07:13 128 H 24 91 High Flow Nasal Cannula 10/29/23 06:05 111 H 20 93 High Flow Nasal Cannula 10/29/23 05:11 86 L Oxymask 10/29/23 04:56 89 L Nasal Cannula 10/29/23 04:33 98 H 20 91 Nasal Cannula 10/29/23 03:52 37.2 C 97 H 20 103/76 90 Nasal Cannula O2 Flow Rate FiO2 10/29/23 14:41 2 10/29/23 11:10 30 10/29/23 08:30 30 65 10/29/23 08:21 10/29/23 07:55 30 10/29/23 07:40 30 55 10/29/23 07:13 30 80 10/29/23 06:05 30 80 10/29/23 05:11 6 10/29/23 04:56 6 10/29/23 04:33 6 10/29/23 03:52 5 Laboratory Results 10/29/23 07:27 10/29/23 07:27 PG Care Time/CCT Total # of Minutes Spent Total Time Spent with Patient: Total time spent is greater than 50% in coordination of care (as documented) at patient's floor/unit and/or counseling patient: Coding Level of Care Code 82707 SUB INP/OBS CARE 3/50MIN Diagnoses Community acquired bacterial pneumonia J15.9 Acute respiratory failure with hypoxia J96.01 Mild CAD I25.10 Afib I48.91 Chronic kidney disease, unspecified CKD stage N18.9 Chronic kidney disease stage: unspecified stage Primary hypertension I10 Hypertension type: primary hypertension (5) Chronic Kidney Disease Chronic kidney disease stage: unspecified stage Qualified Code(s): N18.9 - Chronic kidney disease, unspecified (6) HTN (hypertension) Hypertension type: primary hypertension Qualified Code(s): I10 - Essential (primary) hypertension
[2023-10-29] MEDS: ALBUT/IPRATROP 3MG/0.5MG NEB 3 ML VIAL NEB SCH (19:23)
[2023-10-30 07:31] LABS: Basophils # (auto) 0.01 K/uL (0.00-0.20); Basophils % (auto) 0.1 %; Eosinophils # (auto) 0.01 K/uL (0.00-0.50); Eosinophils % (auto) 0.1 %; Hematocrit (blood only) 34.5 % (37.0-47.0); Hemoglobin 11.4 g/dl (12.0-16.0); Immature Granulocytes # (auto) 0.09 K/uL (0.01-0.20); Immature Granulocytes % (auto) 0.7 %; Lymphocytes # (auto) 1.13 K/uL (1.20-3.40); Lymphocytes % (auto) 9.1 %; Mean Corpuscular Hemoglobin 28.6 pg (25.0-34.0); Mean Corpuscular Volume 86.5 fL (80.0-100.0); Mean Platelet Volume 10.4 fL (9.4-12.4); Monocytes # (auto) 0.29 K/uL (0.11-0.59); Monocytes % (auto) 2.3 %; Neutrophils # (auto) 10.91 K/uL (1.40-6.50); Neutrophils % (auto) 87.7 %; Platelet Count 217 K/uL (130-400); RDW Coefficient of Variation 15.6 % (11.5-14.5); Red Blood Count 3.99 M/uL (4.20-5.40); White Blood Count 12.44 K/ul (4.8-10.8)
[2023-10-30 08:42] LABS: BUN Creatinine Ratio 19.6 (10-20); Calcium 9.1 mg/dl (8.6-10.3); Creatinine Clr Calc Pharmacy 48.3 ml/min; Est GFR (African American) 38.6 ml/min; Est GFR (Non-African American) 33.3 ml/min; Potassium 4.6 mmol/L (3.5-5.1)
--- NOTE | 2023-10-30 11:42 | Hospitalist Progress Note ---
Date of Service October 30, 2023 Assessment & Plan (1) Community acquired bacterial pneumonia: Plan: Right upper and right lower lobes. Pulmonary medicine consultation appreciated. She is now on Levaquin, day 2. Cultures are nondiagnostic so far. Repeat portable chest x-ray again tomorrow, October 30 (2) Acute respiratory failure with hypoxia: Plan: Supplemental oxygen to maintain saturation greater than 90%. Currently requiring high flow oxygen. Wean off as tolerated (3) Mild CAD: Plan: Stable. Continue current medical management. (4) Afib: Plan: Chronic atrial fibrillation on Eliquis therapy. Mildly tachycardic due to pneumonia and hypoxia. Telemetry. Continue amiodarone and apixaban. (5) Chronic Kidney Disease: Plan: Acute on chronic kidney disease, stage III, present on admission. Creatinine has improved to baseline. Monitor intake and output. Serial labs (6) HTN (hypertension): Plan: Stable. Continue diltiazem, metoprolol. Losartan temporarily on hold. Plan To be determined. Will obtain OT and PT assessments when appropriate Admission and Anticipated Discharge Date Admission Date: October 28, 2023 Subjective Alert and oriented. No distress. No significant improvement yet. Will repeat portable chest x-ray again tomorrow, October 30. She continues to require high flow oxygen. She is now on Levaquin, day 2. Appreciate pulmonary medicine consultation and recommendations. Creatinine is now at her baseline around 1.5. Chest CT scan done on admission, October 27, is negative for any airway obstruction. She did have evidence of right upper lobe and right lower lobe infiltrates on that CT scan. Review of Systems 2 Review of Systems: Constitutional-no fever or chills ENT-no blurred vision, no double vision, no epistaxis, no sore throat Respiratory-nonproductive cough. Shortness of breath with minimal exertion. No hemoptysis. Cardiac-no palpitations, no chest pain, no syncope GI-no nausea, vomiting, diarrhea, melena, hematochezia -no urinary retention, no urinary incontinence, no dysuria, no hematuria Musculoskeletal-no joint pain, no muscle tenderness Skin-no bruising, no rashes, no pruritus Neuro-no isolated weakness, no paresthesia Psych-no depression, no anxiety Physical Exam 2 Physical Exam: General-alert and oriented x3, no fever, no chills HEENT-head atraumatic and normocephalic, pupils equal and reactive to light, extraocular muscles intact Neck-no lymphadenopathy or thyromegaly, trachea midline Chest-rhonchi at the right base. No wheezing. No appreciable dullness Cardiac-irregular rhythm consistent with atrial fibrillation. Controlled rate. Normal S1 and S2 Abdomen-normal bowel sounds, nontender, no hepatosplenomegaly Extremities-no cyanosis, clubbing, or edema Neuro-cranial nerves II through XII intact, motor and sensory function within normal limits, strength symmetrical, no focal deficits Psych-normal affect, normal mood Results & Data Results & Data Vital Signs (Past 12 Hours) Vital Signs Temp Pulse Resp BP BP Pulse Ox O2 Del Method 10/30/23 11:31 36.8 C 90 24 109/74 96 High Flow Nasal Cannula 10/30/23 10:49 95 H 24 95 High Flow Nasal Cannula 10/30/23 07:56 36.6 C 110 H 25 H 110/72 90 High Flow Nasal Cannula 10/30/23 07:16 96 H 16 94 High Flow Nasal Cannula 10/30/23 07:15 96 H 12 94 High Flow Nasal Cannula 10/30/23 03:46 36.9 C 93 H 20 126/90 91 High Flow Nasal Cannula 10/30/23 02:19 90 19 94 High Flow Nasal Cannula 10/29/23 23:59 37.1 C 94 H 20 117/84 91 Free Flow/Blow-by O2 Flow Rate FiO2 10/30/23 11:31 30 45 10/30/23 10:49 30 45 10/30/23 07:56 30 45 10/30/23 07:16 30 45 10/30/23 07:15 30 45 10/30/23 03:46 30 45 10/30/23 02:19 30 45 10/29/23 23:59 30 45 Laboratory Results 10/30/23 07:00 10/30/23 07:00 PG Care Time/CCT Total # of Minutes Spent Total Time Spent with Patient: Total time spent is greater than 50% in coordination of care (as documented) at patient's floor/unit and/or counseling patient: Coding Level of Care Code 81430 SUB INP/OBS CARE 3/50MIN Diagnoses Community acquired bacterial pneumonia J15.9 Acute respiratory failure with hypoxia J96.01 Mild CAD I25.10 Afib I48.91 Chronic kidney disease, unspecified CKD stage N18.9 Chronic kidney disease stage: unspecified stage Primary hypertension I10 Hypertension type: primary hypertension (5) Chronic Kidney Disease Chronic kidney disease stage: unspecified stage Qualified Code(s): N18.9 - Chronic kidney disease, unspecified (6) HTN (hypertension) Hypertension type: primary hypertension Qualified Code(s): I10 - Essential (primary) hypertension
--- NOTE | 2023-10-30 12:24 | Pulmonology Progress Note ---
Date of Service October 30, 2023 Assessment & Plan (1) Multifocal pneumonia: (2) Viral infection: (3) Hypoxia: Plan 68-year-old female with a history of hypertension, CKD stage III, dyslipidemia and hiatal hernia who presented to the hospital with multifocal pneumonia. High flow oxygen requirements improved today and she is down to 45% FiO2 and 30 L/min. She was found to have coronavirus on respiratory viral panel. I suspect she has a superimposed bacterial infection. Continue Levaquin for total 10 days. Follow-up urine Legionella antigen. Continue to wean supplemental oxygen as able. I recommend proning to help with VQ mismatch and secretion management. Recommend incentive spirometry and flutter valve to promote mucociliary clearance and lung recruitment. Discussed with bedside nursing and RT. Pulmonary will continue to follow. Thank you for the consult Admission and Anticipated Discharge Date Admission Date: October 28, 2023 Subjective Patient has cough today that is mildly productive with sputum. No hemoptysis. Denies any fevers or chills. Shortness of breath about the same as yesterday. Review of Systems Review of Systems: All systems reviewed & are unremarkable except as noted in HPI & below Physical Exam Physical Exam: Constitutional: Patient appears to be of their stated age. Patient is in no apparent distress. Patient is well-developed. Eyes: Pupils are equal round and reactive to light. Conjunctivae are normal. Anicteric sclera. Ears nose, mouth and throat: Mallampati class 2. Normal posterior oropharynx. Uvula is midline. Neck: Trachea is midline. Visual inspection is normal. Respiratory: Mild tachypnea. High flow nasal cannula noted on the nose. Rhonchi noted in the right lower lobe. Cardiovascular: Regular rate and rhythm. No murmurs. No edema. Gastrointestinal: Normal bowel sounds, soft, nontender and nondistended. No hepatosplenomegaly noted. Musculoskeletal: No cyanosis. Patient is able to move all extremities. Strength is 5 out of 5 in the upper and lower extremities. Skin: No rashes, warm dry and intact. Neurologic: No obvious focal neurological deficits seen. Psychiatric: Alert and oriented x3 with a euthymic affect. Results & Data Results & Data Vital Signs (Past 12 Hours) Vital Signs Temp Pulse Resp BP BP Pulse Ox O2 Del Method 10/30/23 11:31 36.8 C 90 24 109/74 96 High Flow Nasal Cannula 10/30/23 10:49 95 H 24 95 High Flow Nasal Cannula 10/30/23 07:56 36.6 C 110 H 25 H 110/72 90 High Flow Nasal Cannula 10/30/23 07:16 96 H 16 94 High Flow Nasal Cannula 10/30/23 07:15 96 H 12 94 High Flow Nasal Cannula 10/30/23 07:00 High Flow Nasal Cannula 10/30/23 03:46 36.9 C 93 H 20 126/90 91 High Flow Nasal Cannula 10/30/23 02:19 90 19 94 High Flow Nasal Cannula O2 Flow Rate FiO2 10/30/23 11:31 30 45 10/30/23 10:49 30 45 10/30/23 07:56 30 45 10/30/23 07:16 30 45 10/30/23 07:15 30 45 10/30/23 07:00 30 45 10/30/23 03:46 30 45 10/30/23 02:19 30 45 PG Care Time/CCT Total # of Minutes Spent Total Time Spent with Patient: Total time spent is greater than 50% in coordination of care (as documented) at patient's floor/unit and/or counseling patient: Coding Level of Care Code 06576 SUB INP/OBS CARE 2/35MIN Diagnoses Multifocal pneumonia J18.9 Viral infection B34.9 Hypoxia R09.02
--- NOTE | 2023-10-30 13:47 | Electrocardiogram Report ---
Test Reason : Blood Pressure : / mmHG Vent. Rate : 109 BPM Atrial Rate : 000 BPM P-R Int : 000 ms QRS Dur : 090 ms QT Int : 292 ms P-R-T Axes : 000 -07 069 degrees QTc Int : 393 ms Atrial fibrillation with rapid ventricular response Nonspecific ST and T wave abnormality Abnormal ECG When compared with ECG of 06-AUG-2023 06:50, Nonspecific T wave abnormality, worse in Lateral leads QT has shortened Confirmed by Dk Walden ([id number]) on 10/30/2023 1:47:36 PM Referred By: REFERRED SELF Confirmed By:Dk Walden
--- NOTE | 2023-10-31 07:01 | XRay Report ---
XR chest 1V portable HISTORY: 68 years-old Female right pneumonia, respiratory failure acute respiratory failure COMPARISON: Chest radiograph 10/29/2023, chest CT 10/28/2023 TECHNIQUE: AP view of the chest FINDINGS: Cardiac silhouette is enlarged. Pulmonary vascular congestion. Airspace opacities of the right lung b ase are redemonstrated with a round area of consolidation within the right lung base measuring up to approximately 5 cm. Findings have slightly improved. Mild left basilar atelectasis. No pneumothorax o r large pleural effusion. IMPRESSION: 1. Cardiomegaly with pulmonary vascular congestion. 2. Persistent right basilar pneumonia which appears similar to slightly improved. Continued follow-up is needed. ACT 112: Negative or not required by law. The above report was generated using voice recognition software. It may contain grammatical, syntax o r spelling errors. Electronically signed by: Bryan Harris M.D. 10/31/2023 7:00 AM
--- NOTE | 2023-10-31 07:45 | Electrocardiogram Report ---
Test Reason : Blood Pressure : / mmHG Vent. Rate : 117 BPM Atrial Rate : 105 BPM P-R Int : 000 ms QRS Dur : 102 ms QT Int : 342 ms P-R-T Axes : 000 -03 068 degrees QTc Int : 477 ms Atrial fibrillation with rapid ventricular response Abnormal ECG When compared with ECG of 28-OCT-2023 12:09, (unconfirmed) No significant change was found Confirmed by Dk Walden ([id number]) on 10/31/2023 7:44:47 AM Referred By: REFERRED SELF Confirmed By:Dk Walden
[2023-10-31 08:24] LABS: Basophils # (auto) 0.02 K/uL (0.00-0.20); Basophils % (auto) 0.3 %; Eosinophils # (auto) 0.16 K/uL (0.00-0.50); Hematocrit (blood only) 36.3 % (37.0-47.0); Hemoglobin 11.7 g/dl (12.0-16.0); Immature Granulocytes # (auto) 0.08 K/uL (0.01-0.20); Lymphocytes % (auto) 22.6 %; Mean Corpuscular Hemoglobin 28.3 pg (25.0-34.0); Mean Corpuscular Hgb Conc 32.2 g/dL (32.0-36.0); Mean Corpuscular Volume 87.9 fL (80.0-100.0); Mean Platelet Volume 10.3 fL (9.4-12.4); Monocytes # (auto) 0.53 K/uL (0.11-0.59); Monocytes % (auto) 6.6 %; Neutrophils # (auto) 5.39 K/uL (1.40-6.50); Neutrophils % (auto) 67.5 %; Platelet Count 225 K/uL (130-400); RDW Coefficient of Variation 15.7 % (11.5-14.5); RDW Standard Deviation 50.1 fL (36.4-46.3); Red Blood Count 4.13 M/uL (4.20-5.40); White Blood Count 7.98 K/ul (4.8-10.8)
[2023-10-31 09:08] LABS: BUN Creatinine Ratio 21.2 (10-20); Calcium 8.8 mg/dl (8.6-10.3); Creatinine Clr Calc Pharmacy 52.1 ml/min; Est GFR (African American) 42.4 ml/min; Est GFR (Non-African American) 36.6 ml/min; Potassium 4.5 mmol/L (3.5-5.1)
[2023-10-31] MEDS: FUROSEMIDE 40 MG/4 ML VIAL IV ONE (10:09)
--- NOTE | 2023-10-31 12:06 | Pulmonology Progress Note ---
Date of Service October 31, 2023 Assessment & Plan (1) Multifocal pneumonia: (2) Viral infection: (3) Hypoxia: Plan 68-year-old female with a history of hypertension, CKD stage III, dyslipidemia and hiatal hernia who presented to the hospital with multifocal pneumonia. Her oxygen requirements have improved substantially and she is down to 8 L/min via nasal cannula. This can be continued we wean. Her dyspnea is multifactorial related to pneumonia and cardiac disease. Recommend better rate control of her cardiac rhythm Recommend continuing Levaquin for total of 10 days for community-acquired pneumonia. Please follow-up urine Legionella antigen. At this time, I have no further recommendations. Patient would benefit from outpatient follow-up CT scan of her chest in 2 to 3 months to ensure resolution of infiltrates. Please call with any further questions Admission and Anticipated Discharge Date Admission Date: October 28, 2023 Subjective Her hypoxemia continues to improve and she is now down to 8 L of supplemental oxygen with saturations in the 90s. She still remains very dyspneic with minimal activity and becomes quite tachycardic. She feels that her cough has improved somewhat. Appetite remains stable. Review of Systems Review of Systems: All systems reviewed & are unremarkable except as noted in HPI & below Physical Exam Physical Exam: Constitutional: Patient appears to be of their stated age. Patient is in no apparent distress. Patient is well-developed. Eyes: Pupils are equal round and reactive to light. Conjunctivae are normal. Anicteric sclera. Ears nose, mouth and throat: Mallampati class 2. Normal posterior oropharynx. Uvula is midline. Neck: Trachea is midline. Visual inspection is normal. Respiratory: Mild tachypnea. High flow nasal cannula noted on the nose. Rhonchi noted in the right lower lobe. Cardiovascular: Regular rate and rhythm. No murmurs. No edema. Gastrointestinal: Normal bowel sounds, soft, nontender and nondistended. No hepatosplenomegaly noted. Musculoskeletal: No cyanosis. Patient is able to move all extremities. Strength is 5 out of 5 in the upper and lower extremities. Skin: No rashes, warm dry and intact. Neurologic: No obvious focal neurological deficits seen. Psychiatric: Alert and oriented x3 with a euthymic affect. Results & Data Results & Data Vital Signs (Past 12 Hours) Vital Signs Temp Pulse Resp BP Pulse Ox O2 Del Method O2 Flow Rate 04/04/24 10:31 36.8 C 93 H 23 114/72 96 High Flow Nasal Cannula 8 10/31/23 07:49 36.6 C 107 H 18 105/73 92 High Flow Nasal Cannula 8 10/31/23 07:20 99 H 20 90 Nasal Cannula 8 10/31/23 05:18 37 C 102 H 24 116/79 95 High Flow Nasal Cannula 10 10/31/23 01:31 36.7 C 115 H 22 129/95 94 High Flow Nasal Cannula 10 PG Care Time/CCT Total # of Minutes Spent Total Time Spent with Patient: Total time spent is greater than 50% in coordination of care (as documented) at patient's floor/unit and/or counseling patient: Coding Level of Care Code 34317 SUB INP/OBS CARE 235MIN Diagnoses Multifocal pneumonia J18.9 Viral infection B34.9 Hypoxia R09.02
--- NOTE | 2023-10-31 14:29 | Hospitalist Progress Note ---
Date of Service October 31, 2023 Assessment & Plan (1) Community acquired bacterial pneumonia: Plan: Right upper and right lower lobes. Pulmonary medicine consultation appreciated. She is now on Levaquin, day 3. Sputum culture is nondiagnostic. Blood cultures remain negative. Repeat portable chest x-ray today, October 30, reveals pulmonary vascular congestion in addition to right lower lobe pneumonia. (2) Pulmonary vascular congestion: Plan: IV Lasix diuresis today, October 30. Repeat portable chest x-ray tomorrow, October 31. Cardiac echo pending (3) Acute respiratory failure with hypoxia: Plan: Oxygen requirement has decreased to 8 L. Treat underlying pneumonia and pulmonary vascular congestion. Wean oxygen down as tolerated (4) Mild CAD: Plan: Stable. Continue current medical management. (5) Afib: Plan: Chronic atrial fibrillation on Eliquis therapy. Tachycardic ventricular rate this morning after she got out of bed to go to the bedside commode. Telemetry. Continue amiodarone, diltiazem and apixaban. (6) Chronic Kidney Disease: Plan: Acute on chronic kidney disease, stage III, present on admission. Creatinine has improved to baseline. Monitor intake and output. Serial labs (7) HTN (hypertension): Plan: Stable. Continue diltiazem, metoprolol. Losartan temporarily on hold. Plan To be determined. OT and PT assessments requested Admission and Anticipated Discharge Date Admission Date: October 28, 2023 Subjective Alert and oriented. She has chronic atrial fibrillation and the ventricular rate was elevated after she got out of bed to go to the bedside commode today. Heart rate is now better. She remains on diltiazem CD2 140 mg daily. Levaquin day 3. Sputum culture reveals moderate normal sathish which is nondiagnostic. Blood culture negative. Creatinine improved to 1.4. Repeat chest x-ray done today, October 30, reveals evidence of pulmonary vascular congestion along with right lower lobe pneumonia. Cardiac echo is pending. She did receive 1 dose of intravenous Lasix today. Will gauge response and possibly reorder tomorrow, October 31. OT and PT assessments requested. Review of Systems 2 Review of Systems: Constitutional-no fever or chills ENT-no blurred vision, no double vision, no epistaxis, no sore throat Respiratory-nonproductive cough. Shortness of breath with minimal exertion. No hemoptysis. Cardiac-no palpitations, no chest pain, no syncope GI-no nausea, vomiting, diarrhea, melena, hematochezia -no urinary retention, no urinary incontinence, no dysuria, no hematuria Musculoskeletal-no joint pain, no muscle tenderness Skin-no bruising, no rashes, no pruritus Neuro-no isolated weakness, no paresthesia Psych-no depression, no anxiety Physical Exam 2 Physical Exam: General-alert and oriented x3, no fever, no chills HEENT-head atraumatic and normocephalic, pupils equal and reactive to light, extraocular muscles intact Neck-no lymphadenopathy or thyromegaly, trachea midline Chest-rhonchi at the right base. No wheezing. No appreciable dullness Cardiac-irregular rhythm consistent with atrial fibrillation. Rapid rate this morning after getting out of bed to go to the bedside commode. Normal S1 and S2 Abdomen-normal bowel sounds, nontender, no hepatosplenomegaly Extremities-no cyanosis, clubbing, or edema Neuro-cranial nerves II through XII intact, motor and sensory function within normal limits, strength symmetrical, no focal deficits Psych-normal affect, normal mood Results & Data Results & Data Vital Signs (Past 12 Hours) Vital Signs Temp Pulse Pulse Resp BP Pulse Ox O2 Del Method 10/31/23 10:31 36.8 C 93 H 23 114/72 96 High Flow Nasal Cannula 10/31/23 08:00 82 10/31/23 08:00 High Flow Nasal Cannula 10/31/23 07:49 36.6 C 107 H 18 105/73 92 High Flow Nasal Cannula 10/31/23 07:20 99 H 20 90 Nasal Cannula 10/31/23 05:18 37 C 102 H 24 116/79 95 High Flow Nasal Cannula O2 Flow Rate 10/31/23 10:31 8 10/31/23 08:00 10/31/23 08:00 8 10/31/23 07:49 8 10/31/23 07:20 8 10/31/23 05:18 10 Laboratory Results 10/31/23 07:36 10/31/23 07:36 PG Care Time/CCT Total # of Minutes Spent Total Time Spent with Patient: Total time spent is greater than 50% in coordination of care (as documented) at patient's floor/unit and/or counseling patient: Coding Level of Care Code 81372 SUB INP/OBS CARE 3/50MIN Diagnoses Community acquired bacterial pneumonia J15.9 Pulmonary vascular congestion R09.89 Acute respiratory failure with hypoxia J96.01 Mild CAD I25.10 Afib I48.91 Chronic kidney disease, unspecified CKD stage N18.9 Chronic kidney disease stage: unspecified stage Primary hypertension I10 Hypertension type: primary hypertension (6) Chronic Kidney Disease Chronic kidney disease stage: unspecified stage Qualified Code(s): N18.9 - Chronic kidney disease, unspecified (7) HTN (hypertension) Hypertension type: primary hypertension Qualified Code(s): I10 - Essential (primary) hypertension
[2023-10-31] MEDS: dilTIAZem HCl 5 MG/ML 5 ML VIAL IV STA (17:40)
--- NOTE | 2023-10-31 19:36 | XCELERA ---
[id number]
[2023-11-01] MEDS: dilTIAZem HCl 5 MG/ML 5 ML VIAL IV PRN (00:37)
[2023-11-01 04:17] LABS: Basophils # (auto) 0.02 K/uL (0.00-0.20); Basophils % (auto) 0.2 %; Eosinophils # (auto) 0.17 K/uL (0.00-0.50); Hematocrit (blood only) 37.1 % (37.0-47.0); Hemoglobin 11.8 g/dl (12.0-16.0); Immature Granulocytes # (auto) 0.14 K/uL (0.01-0.20); Immature Granulocytes % (auto) 1.6 %; Lymphocytes # (auto) 1.58 K/uL (1.20-3.40); Lymphocytes % (auto) 18.2 %; Mean Corpuscular Hgb Conc 31.8 g/dL (32.0-36.0); Mean Corpuscular Volume 88.1 fL (80.0-100.0); Mean Platelet Volume 9.7 fL (9.4-12.4); Monocytes # (auto) 0.85 K/uL (0.11-0.59); Monocytes % (auto) 9.8 %; Neutrophils # (auto) 5.94 K/uL (1.40-6.50); Neutrophils % (auto) 68.2 %; Platelet Count 233 K/uL (130-400); RDW Coefficient of Variation 15.4 % (11.5-14.5); RDW Standard Deviation 49.5 fL (36.4-46.3); Red Blood Count 4.21 M/uL (4.20-5.40)
[2023-11-01 04:33] LABS: BUN Creatinine Ratio 16.6 (10-20); Calcium 9.1 mg/dl (8.6-10.3); Est GFR (African American) 35.5 ml/min; Est GFR (Non-African American) 30.7 ml/min; Potassium 3.9 mmol/L (3.5-5.1)
[2023-11-01] MEDS: FLUTICASONE FUROATE 100MCG 14 PUFFS/INHALER INH SCH (09:13)
[2023-11-01] MEDS: FUROSEMIDE 40 MG/4 ML VIAL IV SCH (11:28)
--- NOTE | 2023-11-01 14:53 | Hospitalist Progress Note ---
Date of Service November 01, 2023 Assessment & Plan (1) Community acquired bacterial pneumonia: Plan: Right upper and right lower lobes. Pulmonary medicine consultation appreciated. She is on Levaquin, day 4. Sputum culture is nondiagnostic. Blood cultures remain negative. Chest x-ray will be repeated again tomorrow, November 01. (2) Pulmonary vascular congestion: Plan: She is now on every 12 IV scheduled Lasix diuresis. Cardiac echo reveals ejection fraction of 50% with left and right atrial enlargement and moderate MR. (3) Acute respiratory failure with hypoxia: Plan: She continues to need high flow oxygen. Treat underlying pneumonia and pulmonary vascular congestion. Wean oxygen down as tolerated (4) Mild CAD: Plan: Stable. Continue current medical management. (5) Afib: Plan: Chronic atrial fibrillation on Eliquis therapy. Ventricular rate remains slightly elevated. Telemetry. Continue amiodarone, diltiazem and apixaban. (6) Chronic Kidney Disease: Plan: Acute on chronic kidney disease, stage III, present on admission. Creatinine has improved to baseline. Monitor intake and output. Serial labs (7) HTN (hypertension): Plan: Stable. Continue diltiazem, metoprolol. Losartan temporarily on hold. Plan To be determined. OT and PT assessments requested Admission and Anticipated Discharge Date Admission Date: October 28, 2023 Subjective Alert and oriented. No distress. She remains on high flow oxygen. Moderate response to parenteral Lasix with 500 cc diuresis. Will continue intravenous Lasix every 12 hours for now. Repeat chest x-ray again tomorrow, November 01. She remains on Levaquin, day 4 Review of Systems 2 Review of Systems: Constitutional-no fever or chills ENT-no blurred vision, no double vision, no epistaxis, no sore throat Respiratory-nonproductive cough. Shortness of breath with minimal exertion. No hemoptysis. Cardiac-no palpitations, no chest pain, no syncope GI-no nausea, vomiting, diarrhea, melena, hematochezia -no urinary retention, no urinary incontinence, no dysuria, no hematuria Musculoskeletal-no joint pain, no muscle tenderness Skin-no bruising, no rashes, no pruritus Neuro-no isolated weakness, no paresthesia Psych-no depression, no anxiety Physical Exam 2 Physical Exam: General-alert and oriented x3, no fever, no chills HEENT-head atraumatic and normocephalic, pupils equal and reactive to light, extraocular muscles intact Neck-no lymphadenopathy or thyromegaly, trachea midline Chest-rhonchi at the right base. No wheezing. No appreciable dullness Cardiac-irregular rhythm consistent with atrial fibrillation. Rapid rate this morning after getting out of bed to go to the bedside commode. Normal S1 and S2 Abdomen-normal bowel sounds, nontender, no hepatosplenomegaly Extremities-no cyanosis, clubbing, or edema Neuro-cranial nerves II through XII intact, motor and sensory function within normal limits, strength symmetrical, no focal deficits Psych-normal affect, normal mood Results & Data Results & Data Vital Signs (Past 12 Hours) Vital Signs Temp Pulse Resp BP Pulse Ox Pulse Ox Pulse Ox 11/01/23 12:58 36.4 C L 121 H 19 117/71 94 11/01/23 11:33 90 91 11/01/23 08:21 36.4 C L 118 H 25 H 119/74 96 11/01/23 08:07 110 H 16 97 11/01/23 03:34 36.9 C 95 H 24 135/96 94 Pulse Ox O2 Del Method O2 Flow Rate O2 Flow Rate O2 Flow Rate O2 Flow Rate 11/01/23 12:58 High Flow Nasal Cannula 11/01/23 11:33 85 L 9 9 9 11/01/23 08:21 High Flow Nasal Cannula 9 11/01/23 08:07 Nasal Cannula 11 11/01/23 03:34 High Flow Nasal Cannula 10 Laboratory Results 11/01/23 03:50 11/01/23 03:50 PG Care Time/CCT Total # of Minutes Spent Total Time Spent with Patient: Total time spent is greater than 50% in coordination of care (as documented) at patient's floor/unit and/or counseling patient: Coding Level of Care Code 94663 SUB INP/OBS CARE 3/50MIN Diagnoses Community acquired bacterial pneumonia J15.9 Pulmonary vascular congestion R09.89 Acute respiratory failure with hypoxia J96.01 Mild CAD I25.10 Afib I48.91 Chronic kidney disease, unspecified CKD stage N18.9 Chronic kidney disease stage: unspecified stage Primary hypertension I10 Hypertension type: primary hypertension (6) Chronic Kidney Disease Chronic kidney disease stage: unspecified stage Qualified Code(s): N18.9 - Chronic kidney disease, unspecified (7) HTN (hypertension) Hypertension type: primary hypertension Qualified Code(s): I10 - Essential (primary) hypertension
[2023-11-02 07:04] LABS: Basophils # (auto) 0.02 K/uL (0.00-0.20); Basophils % (auto) 0.3 %; Eosinophils # (auto) 0.18 K/uL (0.00-0.50); Eosinophils % (auto) 2.3 %; Hematocrit (blood only) 36.9 % (37.0-47.0); Hemoglobin 12.2 g/dl (12.0-16.0); Immature Granulocytes # (auto) 0.12 K/uL (0.01-0.20); Immature Granulocytes % (auto) 1.5 %; Lymphocytes # (auto) 1.43 K/uL (1.20-3.40); Lymphocytes % (auto) 18.1 %; Mean Corpuscular Hemoglobin 28.1 pg (25.0-34.0); Mean Corpuscular Hgb Conc 33.1 g/dL (32.0-36.0); Mean Platelet Volume 9.8 fL (9.4-12.4); Monocytes # (auto) 1.08 K/uL (0.11-0.59); Monocytes % (auto) 13.7 %; Neutrophils # (auto) 5.08 K/uL (1.40-6.50); Neutrophils % (auto) 64.1 %; Platelet Count 272 K/uL (130-400); RDW Coefficient of Variation 15.2 % (11.5-14.5); RDW Standard Deviation 47.5 fL (36.4-46.3); Red Blood Count 4.34 M/uL (4.20-5.40); White Blood Count 7.91 K/ul (4.8-10.8)
[2023-11-02 07:25] LABS: BUN Creatinine Ratio 16.5 (10-20); Calcium 9.1 mg/dl (8.6-10.3); Creatinine Clr Calc Pharmacy 45.8 ml/min; Est GFR (African American) 36.9 ml/min; Est GFR (Non-African American) 31.8 ml/min; Potassium 3.5 mmol/L (3.5-5.1)
--- NOTE | 2023-11-02 12:42 | Hospitalist Progress Note ---
Date of Service November 02, 2023 Assessment & Plan (1) Community acquired bacterial pneumonia: Plan: Right upper and right lower lobes. Pulmonary medicine consultation appreciated. She is on Levaquin, day 5. Sputum culture is nondiagnostic. Blood cultures remain negative. Chest x-ray done today, November 01, looks better (2) Pulmonary vascular congestion: Plan: Improved with parenteral Lasix therapy. Cardiac echo reveals ejection fraction of 50% with left and right atrial enlargement and moderate MR. (3) Acute respiratory failure with hypoxia: Plan: Oxygen requirements have decreased. She probably will need oxygen at home for a while at discharge. Treat underlying pneumonia and pulmonary vascular congestion. Wean oxygen down as tolerated (4) Mild CAD: Plan: Stable. Continue current medical management. (5) Afib: Plan: Chronic atrial fibrillation on Eliquis therapy. Ventricular rate is mildly elevated at times. Telemetry. Continue amiodarone, diltiazem and apixaban. (6) Chronic Kidney Disease: Plan: Acute on chronic kidney disease, stage III, present on admission. Creatinine has improved to baseline. Monitor intake and output. Serial labs (7) HTN (hypertension): Plan: Stable. Continue diltiazem, metoprolol. Losartan temporarily on hold. Plan Hopefully home November 03, with home health services. Admission and Anticipated Discharge Date Admission Date: October 28, 2023 Subjective Alert and oriented. No distress. Chest x-ray today, November 01, looks better. Oxygen requirements are decreasing. She is now on 6 L/min. OT and PT assessments recommended eventual discharge to home with home health services. She remains on day 5 of Levaquin. Cardiac echo reveals ejection fraction of 50% with left and right atrial enlargement and moderate MR. She remains on parenteral Lasix therapy with I's and O's -816 cc over the past 24 hours. Hopefully she can go home November 03, with home health services Review of Systems 2 Review of Systems: Constitutional-no fever or chills ENT-no blurred vision, no double vision, no epistaxis, no sore throat Respiratory-nonproductive cough. Shortness of breath with minimal exertion. No hemoptysis. Cardiac-no palpitations, no chest pain, no syncope GI-no nausea, vomiting, diarrhea, melena, hematochezia -no urinary retention, no urinary incontinence, no dysuria, no hematuria Musculoskeletal-no joint pain, no muscle tenderness Skin-no bruising, no rashes, no pruritus Neuro-no isolated weakness, no paresthesia Psych-no depression, no anxiety Physical Exam 2 Physical Exam: General-alert and oriented x3, no fever, no chills HEENT-head atraumatic and normocephalic, pupils equal and reactive to light, extraocular muscles intact Neck-no lymphadenopathy or thyromegaly, trachea midline Chest-rhonchi at the right base. No wheezing. No appreciable dullness Cardiac-irregular rhythm consistent with atrial fibrillation. Rapid rate this morning after getting out of bed to go to the bedside commode. Normal S1 and S2 Abdomen-normal bowel sounds, nontender, no hepatosplenomegaly Extremities-no cyanosis, clubbing, or edema Neuro-cranial nerves II through XII intact, motor and sensory function within normal limits, strength symmetrical, no focal deficits Psych-normal affect, normal mood Results & Data Results & Data Vital Signs (Past 12 Hours) Vital Signs Temp Pulse Resp BP Pulse Ox O2 Del Method O2 Flow Rate 11/02/23 11:15 36.8 C 104 H 19 98/64 L 91 Nasal Cannula 6 11/02/23 11:07 103 H 20 91 Nasal Cannula 6 11/02/23 08:00 High Flow Nasal Cannula 10 11/02/23 07:22 36.5 C 111 H 18 107/79 91 High Flow Nasal Cannula 6 11/02/23 07:18 76 18 96 Nasal Cannula 9 11/02/23 03:00 37.2 C 112 H 25 H 94/75 L 95 High Flow Nasal Cannula Laboratory Results 11/02/23 06:48 11/02/23 06:48 PG Care Time/CCT Total # of Minutes Spent Total Time Spent with Patient: Total time spent is greater than 50% in coordination of care (as documented) at patient's floor/unit and/or counseling patient: Coding Level of Care Code 60725 SUB INP/OBS CARE 3/50MIN Diagnoses Community acquired bacterial pneumonia J15.9 Pulmonary vascular congestion R09.89 Acute respiratory failure with hypoxia J96.01 Mild CAD I25.10 Afib I48.91 Chronic kidney disease, unspecified CKD stage N18.9 Chronic kidney disease stage: unspecified stage Primary hypertension I10 Hypertension type: primary hypertension (6) Chronic Kidney Disease Chronic kidney disease stage: unspecified stage Qualified Code(s): N18.9 - Chronic kidney disease, unspecified (7) HTN (hypertension) Hypertension type: primary hypertension Qualified Code(s): I10 - Essential (primary) hypertension
--- NOTE | 2023-11-02 13:55 | XRay Report ---
XR chest 1V portable CLINICAL HISTORY: CHF, RLL pneumonia TECHNIQUE: Single frontal radiograph of the chest was obtained. Comparison: Comparison is made to chest radiograph 10/31/2023 FINDINGS: No lines and tubes are seen. Cardiomegaly is noted. The aortic arch is calcified. Interval slight dec rease in conspicuity of right pneumonia. No evidence of pleural effusion or pneumothorax. IMPRESSION: Interval slight improvement in right pneumonia. ACT 112: Negative or not required by law. Electronically signed by: Michael Alexandre M.D. 11/02/2023 1:54 PM
[2023-11-03 07:19] LABS: Basophils # (auto) 0.02 K/uL (0.00-0.20); Basophils % (auto) 0.3 %; Eosinophils # (auto) 0.31 K/uL (0.00-0.50); Eosinophils % (auto) 4.5 %; Hematocrit (blood only) 39.8 % (37.0-47.0); Hemoglobin 12.7 g/dl (12.0-16.0); Immature Granulocytes % (auto) 2.9 %; Lymphocytes # (auto) 1.73 K/uL (1.20-3.40); Lymphocytes % (auto) 25.2 %; Mean Corpuscular Hemoglobin 27.9 pg (25.0-34.0); Mean Corpuscular Hgb Conc 31.9 g/dL (32.0-36.0); Mean Corpuscular Volume 87.3 fL (80.0-100.0); Mean Platelet Volume 9.4 fL (9.4-12.4); Monocytes % (auto) 11.6 %; Neutrophils # (auto) 3.81 K/uL (1.40-6.50); Neutrophils % (auto) 55.5 %; Platelet Count 285 K/uL (130-400); RDW Coefficient of Variation 15.3 % (11.5-14.5); RDW Standard Deviation 49.1 fL (36.4-46.3); Red Blood Count 4.56 M/uL (4.20-5.40); White Blood Count 6.87 K/ul (4.8-10.8)
[2023-11-03 07:36] LABS: BUN Creatinine Ratio 18.5 (10-20); Calcium 9.3 mg/dl (8.6-10.3); Creatinine Clr Calc Pharmacy 37.2 ml/min; Potassium 3.6 mmol/L (3.5-5.1)
--- NOTE | 2023-11-03 12:07 | Hospitalist Progress Note ---
Date of Service November 03, 2023 Assessment & Plan (1) Community acquired bacterial pneumonia: Plan: Right upper and right lower lobes. Pulmonary medicine consultation appreciated. She is on Levaquin, day 6. Sputum culture is nondiagnostic. Blood cultures remain negative. Chest x-ray done on November 01 looked better . Repeat portable chest x-ray again tomorrow, November 03 (2) Pulmonary vascular congestion: Plan: Improved with parenteral Lasix therapy. Cardiac echo reveals ejection fraction of 50% with left and right atrial enlargement and moderate MR. Monitor intake and output. Serial chest x-ray (3) Acute respiratory failure with hypoxia: Plan: Oxygen requirements have decreased. She probably will need oxygen at home for a while at discharge. Two-step evaluation can be ordered tomorrow November 03. Treat underlying pneumonia and pulmonary vascular congestion. (4) Mild CAD: Plan: Stable. Continue current medical management. (5) Afib: Plan: Chronic atrial fibrillation on Eliquis therapy. Ventricular rate is mildly elevated at times. Telemetry. Continue amiodarone, diltiazem and apixaban. (6) Chronic Kidney Disease: Plan: Acute on chronic kidney disease, stage III, present on admission. Creatinine has improved to baseline. Monitor intake and output. Serial labs (7) HTN (hypertension): Plan: Stable. Continue diltiazem, metoprolol. Losartan temporarily on hold. Plan Hopefully home November 03, with home health services and O2 Admission and Anticipated Discharge Date Admission Date: October 28, 2023 Subjective Continued improvement but still requiring oxygen although her requirement has decreased to 3 L. No distress. I suspect she will need oxygen at the time of discharge. Two-step evaluation can be ordered tomorrow morning. Will repeat portable chest x-ray again tomorrow morning. She remains on parenteral Lasix therapy. Intake and output measurement over the past 24 hours is not consistent with clinical presentation. Creatinine has risen slightly with diuresis to 2.0. Cardiac echo reveals ejection fraction of 50% with left and right atrial enlargement and moderate MR. Levaquin, day 6. MRSA nasal swab is negative. Review of Systems 2 Review of Systems: Constitutional-no fever or chills ENT-no blurred vision, no double vision, no epistaxis, no sore throat Respiratory-nonproductive cough. Shortness of breath with minimal exertion. No hemoptysis. Cardiac-no palpitations, no chest pain, no syncope GI-no nausea, vomiting, diarrhea, melena, hematochezia -no urinary retention, no urinary incontinence, no dysuria, no hematuria Musculoskeletal-no joint pain, no muscle tenderness Skin-no bruising, no rashes, no pruritus Neuro-no isolated weakness, no paresthesia Psych-no depression, no anxiety Physical Exam 2 Physical Exam: General-alert and oriented x3, no fever, no chills HEENT-head atraumatic and normocephalic, pupils equal and reactive to light, extraocular muscles intact Neck-no lymphadenopathy or thyromegaly, trachea midline Chest-rhonchi at the right base. No wheezing. No appreciable dullness Cardiac-irregular rhythm consistent with atrial fibrillation. Rapid rate this morning after getting out of bed to go to the bedside commode. Normal S1 and S2 Abdomen-normal bowel sounds, nontender, no hepatosplenomegaly Extremities-no cyanosis, clubbing, or edema Neuro-cranial nerves II through XII intact, motor and sensory function within normal limits, strength symmetrical, no focal deficits Psych-normal affect, normal mood Results & Data Results & Data Vital Signs (Past 12 Hours) Vital Signs Temp Pulse Pulse Resp BP BP Pulse Ox 11/03/23 12:00 114 H 18 92/69 L 90 11/03/23 11:09 36.6 C 100 H 19 98/71 L 92 11/03/23 10:56 97 H 20 90 11/03/23 10:00 96 H 18 96/65 L 95 11/03/23 09:01 36.5 C 111 H 20 107/74 93 11/03/23 08:00 11/03/23 07:55 36.9 C 112 H 18 89/64 L 94 11/03/23 07:05 76 20 96 11/03/23 07:00 97 H 11/03/23 03:00 36.6 C 96 H 23 95/60 L 95 O2 Del Method O2 Flow Rate 11/03/23 12:00 Nasal Cannula 3 11/03/23 11:09 Nasal Cannula 3 11/03/23 10:56 Nasal Cannula 3 11/03/23 10:00 Nasal Cannula 3 11/03/23 09:01 Nasal Cannula 3 11/03/23 08:00 Nasal Cannula 3 11/03/23 07:55 Nasal Cannula 3 11/03/23 07:05 Nasal Cannula 5 11/03/23 07:00 11/03/23 03:00 Nasal Cannula Laboratory Results 11/03/23 06:58 11/03/23 06:58 PG Care Time/CCT Total # of Minutes Spent Total Time Spent with Patient: Total time spent is greater than 50% in coordination of care (as documented) at patient's floor/unit and/or counseling patient: Coding Level of Care Code 52419 SUB INP/OBS CARE 3/50MIN Diagnoses Community acquired bacterial pneumonia J15.9 Pulmonary vascular congestion R09.89 Acute respiratory failure with hypoxia J96.01 Mild CAD I25.10 Afib I48.91 Chronic kidney disease, unspecified CKD stage N18.9 Chronic kidney disease stage: unspecified stage Primary hypertension I10 Hypertension type: primary hypertension (6) Chronic Kidney Disease Chronic kidney disease stage: unspecified stage Qualified Code(s): N18.9 - Chronic kidney disease, unspecified (7) HTN (hypertension) Hypertension type: primary hypertension Qualified Code(s): I10 - Essential (primary) hypertension
[2023-11-04 06:10] LABS: Basophils # (auto) 0.03 K/uL (0.00-0.20); Basophils % (auto) 0.4 %; Eosinophils # (auto) 0.33 K/uL (0.00-0.50); Eosinophils % (auto) 4.5 %; Hematocrit (blood only) 36.2 % (37.0-47.0); Immature Granulocytes # (auto) 0.22 K/uL (0.01-0.20); Lymphocytes # (auto) 1.39 K/uL (1.20-3.40); Lymphocytes % (auto) 18.8 %; Mean Corpuscular Hemoglobin 28.1 pg (25.0-34.0); Mean Corpuscular Hgb Conc 33.1 g/dL (32.0-36.0); Mean Corpuscular Volume 84.8 fL (80.0-100.0); Monocytes # (auto) 0.82 K/uL (0.11-0.59); Monocytes % (auto) 11.1 %; Neutrophils # (auto) 4.62 K/uL (1.40-6.50); Neutrophils % (auto) 62.2 %; Platelet Count 293 K/uL (130-400); RDW Coefficient of Variation 15.3 % (11.5-14.5); RDW Standard Deviation 47.2 fL (36.4-46.3); Red Blood Count 4.27 M/uL (4.20-5.40); White Blood Count 7.41 K/ul (4.8-10.8)
[2023-11-04 06:35] LABS: BUN Creatinine Ratio 20.1 (10-20); Calcium 9.1 mg/dl (8.6-10.3); Creatinine Clr Calc Pharmacy 35.7 ml/min; Est GFR (African American) 27.5 ml/min; Est GFR (Non-African American) 23.7 ml/min; Potassium 3.4 mmol/L (3.5-5.1)
--- NOTE | 2023-11-04 08:12 | XRay Report ---
XR chest 1V portable CLINICAL HISTORY: right pneumonia TECHNIQUE: Single frontal radiograph of the chest was obtained. Comparison: Comparison is made to chest radiograph 11/02/2023 FINDINGS: No lines and tubes are seen. Cardiomegaly is noted. The aortic arch is calcified. Right lower lung ai rspace opacity is seen. No evidence of pleural effusion or pneumothorax. IMPRESSION: Stable right lower lung airspace opacity compatible with pneumonia.. Stable cardiomegaly. ACT 112: Negative or not required by law. Electronically signed by: Michael Alexandre M.D. 11/04/2023 8:11 AM
[2023-11-04] MEDS: POTASSIUM CHLORIDE CRTAB 20 MEQ TABCR PO STA (08:39)
--- NOTE | 2023-11-04 14:16 | Hospitalist Progress Note ---
Date of Service November 04, 2023 Assessment & Plan (1) Community acquired bacterial pneumonia: Plan: Right upper and right lower lobes. Pulmonary medicine consultation appreciated. With coronavirus that is not CoVid-19 with superimposed secondary bacterial pneumonia as evidenced by significantly elevated procalcitonin, septic shock with hypotension on admission, lactic acidosis. Now much improved, was given IV fluid resuscitation and then diuresed afterwards as below She is on Levaquin, day 7 of 10-last dose will be on 11/06. Sputum culture is negative. Blood cultures remain negative. Chest x-rays serially are improving-no need for further chest x-ray at this point. Needs repeat chest x-ray in 4 to 6 weeks to ensure resolution (2) Sepsis: Plan: Present on admission, with septic shock, as above (3) (HFpEF) heart failure with preserved ejection fraction: Plan: With acute on chronic HFpEF Improved with parenteral Lasix therapy. Cardiac echo reveals ejection fraction of 50% with left and right atrial enlargement and moderate MR. Monitor intake and output Discontinue IV Lasix and resume home Lasix 20 mg daily Replace potassium Follow BMP (4) Chronic Kidney Disease: Plan: Acute on chronic kidney disease, stage III, present on admission. Creatinine remains elevated at 2.09 after aggressive IV diuresis-hold IV Lasix and resume p.o. Lasix in the morning Monitor intake and output Follow BMP (5) Acute respiratory failure with hypoxia: Plan: Secondary to pneumonia initially and then some heart failure as above Improved Two-step walk test shows that she can be on room air at rest and needs 2 L nasal cannula with ambulation She is still desatting to 79% on room air with sleeping during the day-order overnight pulse oximetry on room air for the night of 11/03 to see if needs nocturnal O2 on discharge (6) Mild CAD: Plan: Mild nonobstructive small vessel CAD involving apical LAD, right PLB's on cardiac catheterization 12/2020 continue current medical management with metoprolol, Eliquis, atorvastatin (7) Afib: Plan: Chronic atrial fibrillation on Eliquis therapy, rates controlled Continue telemetry monitoring Continue amiodarone, diltiazem and apixaban (8) HTN (hypertension): Plan: Stable. Continue diltiazem, metoprolol. Losartan temporarily on hold Plan DVT prophylaxis-Eliquis Disposition-continued stay for overnight pulse oximetry but likely discharge to home on 11/04 with home oxygen Admission and Anticipated Discharge Date Admission Date: October 28, 2023 Anticipated date of discharge: 11/05/23 Subjective Patient feeling overall better than on admission. She is weaned off of oxygen at rest and needs 2 L nasal cannula with ambulation. The nurse did note however today that the patient desaturated to 79% on room air while sleeping. She is improved with her appetite and is eating and drinking, moving her bowels. Denies chest pains or shortness of breath. Telemetry with atrial fibrillation, PVCs, rates 90-100s Physical Exam Constitutional: WD/WN, vitals as above Respiratory: normal respiratory effort; no cough Auscultation: + crackles (Right lower upper lung ohara); no rhonchi and no wheezes Cardiovascular: RRR, no murmur, no edema Gastrointestinal (Abdomen): normal bowel sounds, soft, nontender, no hepatosplenomegaly Results & Data Results & Data Vital Signs (Past 12 Hours) Vital Signs Temp Pulse Pulse Pulse Pulse Pulse Resp 11/04/23 10:50 36.5 C 105 H 16 11/04/23 10:15 94 H 16 11/04/23 09:56 88 100 H 81 98 H 11/04/23 08:00 11/04/23 07:29 82 20 11/04/23 07:11 36.5 C 106 H 21 11/04/23 03:18 36.7 C 112 H 18 Resp Resp Resp Resp BP Pulse Ox Pulse Ox 11/04/23 10:50 122/80 93 11/04/23 10:15 93 11/04/23 09:56 20 22 18 18 93 11/04/23 08:00 11/04/23 07:29 92 11/04/23 07:11 97/70 L 91 11/04/23 03:18 94/62 L 90 Pulse Ox Pulse Ox Pulse Ox O2 Del Method O2 Flow Rate O2 Flow Rate 11/04/23 10:50 Room Air 11/04/23 10:15 Room Air 11/04/23 09:56 88 L 96 94 2 11/04/23 08:00 Nasal Cannula 3 11/04/23 07:29 Nasal Cannula 3 11/04/23 07:11 Nasal Cannula 3 11/04/23 03:18 Room Air, Nasal Cannula 3 Laboratory Results CBC, BMP, magnesium reviewed Diagnostic Findings Chest x-ray image personally reviewed Chest X-Ray 11/04/23 07:00 XR chest 1V portable CLINICAL HISTORY: right pneumonia TECHNIQUE: Single frontal radiograph of the chest was obtained. Comparison: Comparison is made to chest radiograph 11/02/2023 FINDINGS: No lines and tubes are seen. Cardiomegaly is noted. The aortic arch is calcified. Right lower lung airspace opacity is seen. No evidence of pleural effusion or pneumothorax. IMPRESSION: Stable right lower lung airspace opacity compatible with pneumonia.. Stable cardiomegaly. ACT 112: Negative or not required by law. Electronically signed by: Michael Alexandre M.D. 11/04/2023 8:11 AM PG Care Time/CCT Total # of Minutes Spent Total Time Spent with Patient: Total time spent is greater than 50% in coordination of care (as documented) at patient's floor/unit and/or counseling patient: Coding Level of Care Code 21558 SUB INP/OBS CARE 3/50MIN Diagnoses Community acquired bacterial pneumonia J15.9 Sepsis A41.9 (HFpEF) heart failure with preserved ejection fraction I50.30 Chronic kidney disease, unspecified CKD stage N18.9 Chronic kidney disease stage: unspecified stage Acute respiratory failure with hypoxia J96.01 Mild CAD I25.10 Afib I48.91 Primary hypertension I10 Hypertension type: primary hypertension (4) Chronic Kidney Disease Chronic kidney disease stage: unspecified stage Qualified Code(s): N18.9 - Chronic kidney disease, unspecified (8) HTN (hypertension) Hypertension type: primary hypertension Qualified Code(s): I10 - Essential (primary) hypertension
[2023-11-05 06:56] LABS: Basophils # (auto) 0.03 K/uL (0.00-0.20); Basophils % (auto) 0.4 %; Eosinophils # (auto) 0.24 K/uL (0.00-0.50); Eosinophils % (auto) 3.5 %; Hematocrit (blood only) 36.1 % (37.0-47.0); Hemoglobin 11.8 g/dl (12.0-16.0); Immature Granulocytes # (auto) 0.11 K/uL (0.01-0.20); Immature Granulocytes % (auto) 1.6 %; Lymphocytes # (auto) 1.43 K/uL (1.20-3.40); Mean Corpuscular Hgb Conc 32.7 g/dL (32.0-36.0); Mean Corpuscular Volume 85.7 fL (80.0-100.0); Mean Platelet Volume 9.4 fL (9.4-12.4); Monocytes # (auto) 0.57 K/uL (0.11-0.59); Monocytes % (auto) 8.4 %; Neutrophils # (auto) 4.44 K/uL (1.40-6.50); Neutrophils % (auto) 65.1 %; Platelet Count 298 K/uL (130-400); RDW Coefficient of Variation 15.1 % (11.5-14.5); RDW Standard Deviation 47.3 fL (36.4-46.3); Red Blood Count 4.21 M/uL (4.20-5.40); White Blood Count 6.82 K/ul (4.8-10.8)
[2023-11-05 07:07] LABS: BUN Creatinine Ratio 21.1 (10-20); C Reactive Protein 3.28 mg/dl (0-0.5); Creatinine Clr Calc Pharmacy 39.2 ml/min; Est GFR (African American) 30.9 ml/min; Est GFR (Non-African American) 26.6 ml/min; Magnesium 2.1 mg/dl (1.7-2.4); Potassium 3.7 mmol/L (3.5-5.1)
[2023-11-05] MEDS: FUROSEMIDE 40 MG TAB PO SCH (08:53)
[2023-11-05] MEDS: levoFLOXacin 750 MG TAB PO SCH (08:54)
[2023-11-05] MEDS ORDERED: levoFLOXacin/D5W 750 MG/150 ML BAG IV SCH (10:00)
--- NOTE | 2023-11-05 13:34 | Discharge Summary ---
Discharge Summary Date of Service November 05, 2023 Notes For Next Care Provider Check BMP within 1 week Restart losartan if renal function improved to baseline in 1 week Check chest x-ray in 4 to 6 weeks to ensure resolution of pneumonia Medication Changes From Visit Hold losartan for at least 1 week until renal function back to baseline Levofloxacin 750 mg p.o. x 1 more dose on 11/06 Increase Lasix to 40 mg p.o. once daily Admission HPI Per Admitting Provider Lindsey is a 68-year-old female with a past medical history of GERD, CKD, hypertension, dyslipidemia, A-fib, chronic venous insufficiency, mild CAD who presented to her PCP with 1 week of cough and shortness of breath much worse in the last 72 hours, in PCP office was hypotensive and ill-appearing and was transferred to the ER by ambulance. She is tachycardic, tachypneic, and mildly hypoxic in the ER with imaging consistent with pneumonia. 1 week cough, dyspnea which suddenly worsened in the last 3 days and is much worse in the last 24 hours . Is also developed +brown sputum production with cough. +night sweats, chills at home. Not sure if she had a fever No nausea or vomiting. +dry heaves. +diarrhea for 2 days. No bloodyblack bowel movements. Has had almost nothign to eat/drink except water the last 3 days No home hoxygen requirement normally Has been taking medications, did take her morning medication Medical History: Reviewed Medications: Reviewed Surgical History: Reviewed Family history: Reviewed Allergies: Reviewed Social History:No tobacco use. No etoh use. Code Status: Full Code Principal Dx & Hospital Course #1 = Principal Diagnosis (1) Community acquired bacterial pneumonia: Right upper and right lower lobes. Pulmonary medicine consultation appreciated. With coronavirus that is not CoVid-19 with superimposed secondary bacterial pneumonia as evidenced by significantly elevated procalcitonin, septic shock with hypotension on admission, lactic acidosis. Now much improved, was given IV fluid resuscitation and then diuresed afterwards as below She is on Levaquin, day 8 of 10-last dose will be on 11/06 and levofloxacin is dosed every other day due to renal function Sputum culture is negative. Blood cultures remain negative. Chest x-rays serially are improving-no need for further chest x-ray at this point. Needs repeat chest x-ray in 4 to 6 weeks to ensure resolution Continue supplemental oxygen with exertion and at bedtime (2) Sepsis: Present on admission, with septic shock, as above now resolved (3) (HFpEF) heart failure with preserved ejection fraction: With acute on chronic HFpEF as evidenced by peripheral edema, elevated BNP, and pulmonary vascular congestion on x-ray Improved with parenteral Lasix therapy. Cardiac echo reveals ejection fraction of 50% with left and right atrial enlargement and moderate MR. Increased home Lasix to 40 mg p.o. once daily for discharge Blood pressures are well-controlled and losartan is on hold for acute kidney injury Replace potassium as per home dose Follow BMP as an outpatient within 1 week Low-sodium diet (4) Chronic Kidney Disease: Acute on chronic kidney disease, stage III, present on admission. Baseline creatinine around 1.7 Creatinine elevated at 2.09 after aggressive IV diuresis-held IV Lasix and resumed p.o. Lasix, held losartan and creatinine down to 1.9 on the day of discharge Follow BMP within 1 week Follows with nephrology as an outpatient (5) Acute respiratory failure with hypoxia: Secondary to pneumonia initially and then some heart failure as above Improved Two-step walk test shows that she can be on room air at rest and needs 2 L nasal cannula with ambulation overnight pulse oximetry on room air for the night of 11/03 showed that she drops below 88% for 8 minutes total through the night and qualifies for home oxygen at 2 L nasal cannula nightly Arrangements for home oxygen made through case management (6) Mild CAD: Mild nonobstructive small vessel CAD involving apical LAD, right PLB's on cardiac catheterization 12/2020 continue current medical management with metoprolol, Eliquis, atorvastatin (7) Afib: Chronic atrial fibrillation on Eliquis therapy, rates controlled Continue amiodarone, diltiazem and apixaban (8) HTN (hypertension): Blood pressures are controlled Continue diltiazem, metoprolol. Losartan temporarily on hold until repeat BMP as an outpatient in 1 week Plan DVT prophylaxis-Eliquis Disposition-medically stable for discharge to home on 11/04 with home oxygen Discharge Exam Constitutional WD/WN, vitals as above Respiratory normal respiratory effort; no cough Auscultation: + crackles (Right lower upper lung ohara); no rhonchi and no wheezes Cardiovascular RRR, no murmur, no edema Gastrointestinal (Abdomen) normal bowel sounds, soft, nontender, no hepatosplenomegaly Updated Medication List Medication Instructions Recorded Confirmed Type acetaminophen 500 mg tablet 1,000 mg PO UD PRN Pain 02/12/19 10/28/23 History ascorbic acid (vitamin C) 1,000 mg 1,000 mg PO BID 02/12/19 10/28/23 History tablet cholecalciferol (vitamin D3) 25 1,000 units PO BID 02/12/19 10/28/23 History mcg (1,000 unit) tablet (Vitamin D3) multivitamin 1 tab PO QAM 06/09/19 10/28/23 History magnesium 250 mg tablet 250 mg PO QAM 06/29/19 10/28/23 History calcium carbonate 500 mg PO BID 09/05/20 10/28/23 History diclofenac sodium 1 % topical gel 2 g topical QID PRN Pain 05/01/22 10/28/23 History metoprolol succinate 50 mg 50 mg PO QPM #90 tabs 09/17/22 10/28/23 Rx tablet,extended release 24 hr atorvastatin 20 mg tablet 20 mg PO QPM #90 tabs 10/17/22 10/28/23 Rx potassium chloride 20 mEq 20 meq PO QAM #90 tabs 01/03/23 10/28/23 Rx tablet,extended release(part/cryst) (Klor-Con M) amiodarone 100 mg tablet 100 mg PO DAILY #90 tabs 01/25/23 10/28/23 Rx omeprazole 20 mg capsule,delayed 20 mg PO Q OTHER DAY #90 caps 01/25/23 10/28/23 Rx release diltiazem HCl 240 mg 240 mg PO DAILY #90 caps 04/08/23 10/28/23 Rx capsule,extended release 24 hr apixaban 5 mg tablet (Eliquis) 5 mg PO BID #180 tabs 08/08/23 10/28/23 Rx furosemide 20 mg tablet (Lasix) 20 mg PO .COMPLEX #120 tabs 08/08/23 10/28/23 Rx losartan 25 mg tablet 25 mg PO DAILY #90 tabs 08/08/23 10/28/23 Rx furosemide 40 mg tablet 40 mg PO QAM #30 tabs 11/05/23 Rx levofloxacin 750 mg tablet 750 mg PO Q2D@0900 #1 tab 11/05/23 Rx Hospital Stay Data Consultations 10/28/23 14:45 ED Decision to Admit Stat 10/29/23 06:21 Consult Pulmonology Routine Diagnostic Imagining Performed 10/28/23 19:24 CT chest diagnostic wo con Stat Pending Results Patient Have Any Pending Studies at Discharge: No Discharge Instructions Given to Patient (Per Discharging Provider) You are admitted with bacterial pneumonia on top of the coronavirus ([id number]). You are treated with antibiotics and had great improvement. Please finish out 1 more dose of the antibiotic called levofloxacin on 11/06 (it is only given once every other day due to your decreased kidney function). You will need a repeat chest x-ray in 4 to 6 weeks to ensure that your pneumonia has completely cleared. You were also treated for heart failure with IV Lasix and lost a great amount of fluid weight and got fluid out from around your lungs. You will need you wearing 2 L of oxygen when you walk around and 2 L of oxygen via nasal cannula every night when you sleep. Your Lasix dose was increased to 40 mg once daily and a prescription for this was sent to your pharmacy. Your kidney function is improved but still not quite back to your normal. Please have your primary care doctor check blood work to include basic metabolic panel within 1 week after discharge. Please follow-up with your primary care physician as scheduled for you within 1 week. Call your Primary Care doctor if any of the following symptoms or problems start or get worse: * Shortness of breath or difficulty breathing * Wake up at night short of breath * Chest pain * Cough * Swelling of your hands, feet, or legs * More fatigued or tired with your normal activity * Palpitations - sudden fast heart beats WEIGHT * Weigh yourself every morning after using the bathroom. * Use the same scale. * Wear the same amount of clothing. * Write your weight down on a chart. * Call your Primary Care doctor if you gain more than 2-3 pounds in 1-2 days. MEDICATIONS * Use this discharge instruction sheet for medication instructions. * Take your medications at the time your doctor ordered. * Do not skip a dose of your medicines. * If you miss a dose of medicine, take it as soon as possible, but DO NOT DOUBLE A DOSE. * Read your medicine information when you get home. * Know all of the side effects of your medicine. If in doubt, ask your pharmacist * Call your Primary Care doctor's office if you have any side effects. * Be sure all of your doctors know what medicine and herbs you take (including cold, flu, and herbal medicine). Take the following with you to your follow-up doctor appointments: * Weight Chart * Medication List * List of questions Do not drink excessive alcohol, beer or wine. Total Time Total Time Spent Total Time Spent (In Minutes): 40 minutes Total Time Includes: Examination of the Patient, Discharge Planning, Medication Reconciliation and Communication With Other Providers (Nurse watch caser) Coding Level of Care Code 18928 INP/OBS DISCH >30 MIN Diagnoses Community acquired bacterial pneumonia J15.9 Sepsis A41.9 (HFpEF) heart failure with preserved ejection fraction I50.30 Chronic kidney disease, unspecified CKD stage N18.9 Chronic kidney disease stage: unspecified stage Acute respiratory failure with hypoxia J96.01 Mild CAD I25.10 Afib I48.91 Primary hypertension I10 Hypertension type: primary hypertension
== END 2023-11-05 15:14 | disposition home or self-care (01) | DRG 871 ==
LOC: ED 12:01 → SUATTDRO 15:40 → EDINP 15:40 → 2E 17:19